=== PATIENT | female | born 1935 | race Caucasian/White ===

== ENCOUNTER 2016-11-18 17:05 | Inpatient (IN) | payer MEDICARE, BC ==
[~2016-11-18] VITALS: Ht 121.9 cm; Wt 55.4 kg
[2016-11-18 18:00] VITALS: BP 147/68; PULSE 81; RESP 16
[2016-11-18] MEDS ORDERED: NACL 0.9% 3 ML SYG IV SCH ×2 (19:00)
[2016-11-18] MEDS ORDERED: ONDANSETRON 4 MG INJ IV PRN (19:00)
[2016-11-18] MEDS ORDERED: NACL 3% FOR INHALATION 15 ML NEBU NEB ONE (19:30)
[2016-11-18] MEDS ORDERED: AZITHROMYCIN 500MG/NS (PMX) 250 ML IVPB ONE (20:00)
--- NOTE | 2016-11-18 20:15 | HP ---
DATE OF ADMISSION: 11/18/2016 REASON FOR ADMISSION: Increasing cough with shortness of breath for 3 weeks. HISTORY OF PRESENT ILLNESS: This 81-year-old female came to see me in my office today being transfe rred from [facility] because of increasing cough over the past 3 weeks. The patient was accompanied by her daughter. She was well until about 10/12/2016, when she fell at home and sh e fractured left lateral 8th and 9th ribs. She has had pain there. She was admitted to [facility] and during that admission was also treated for urinary tract infection with Levaquin. The patient also had an episode of overdosing on Dilantin which is a treatment for a seizure disorder th at she has. The patient at this time has a productive congested cough. She denies any fever or chi lls, but she says that the cough has been getting progressively worse and she has been getting short of breath. She also has been having some left lateral rib cage pain where she fell and injured her self back a month ago. PAST MEDICAL HISTORY: Seizure disorder, fibromyalgia, rheumatoid arthritis, thrombocytopenia, urina ry tract infection, psoriasis, gastroesophageal reflux disease, osteoporosis, hyperlipidemia, breast cancer, incomplete right bundle-branch block pattern, kidney stones, herniated lumbar disk, Graves disease with exophthalmia, cervical spine disease, gastroesophageal reflux disease. ALLERGIES: SHE IS ALLERGIC TO MULTIPLE MEDICATIONS INCLUDIN. SULFA. 2. ERYTHROMYCIN. 3. KEFLEX. PAST SURGICAL HISTORY: Hysterectomy, breast biopsy, colonoscopy, periodontal surgery, left femoral herniorrhaphy. FAMILY HISTORY: Both parents are . Father of colon cancer. Mother of Alzheimer disea se. Sibling of coronary artery disease. SOCIAL HISTORY: The patient does not smoke, does not drink alcohol. REVIEW OF SYSTEMS: CONSTITUTIONAL: She has been losing weight recently and has lost about 20 pounds. She has been inc reasingly fatigued. OPHTHALMOLOGIC: Negative. EARS, NOSE AND THROAT: Negative. CARDIORESPIRATORY: See above. She denies any substernal chest pain. GASTROINTESTINAL: She has had nausea, no vomiting, decreased appetite. NEUROLOGIC: She does have a history of seizure disorder. UROLOGIC: History of recurrent urinary tract infection. PHYSICAL EXAMINATION: GENERAL: At this time reveals an ill-appearing, frail female in no apparent distress. VITAL SIGNS: Temperature 99.4, blood pressure 120/80, heart rate 72. HEENT: Head normocephalic. Eyes: Extraocular muscles intact. NOSE AND MOUTH: Normal. NECK: Supple. No neck vein distention. LUNGS: There were rales and wheezes at the left base up to the mid lung field. Right lung was omer r. HEART: Regular rhythm. No murmurs, gallops, or rubs. ABDOMEN: Soft, nontender. No masses or megaly. EXTREMITIES: There is trace lower extremity edema. SKIN: The patient does have a stage II decubitus ulcer on her sacral area. IMPRESSION: This patient presents now with pneumonia. She has been living in a care home and th erefore is at risk of hospital-acquired type of infections. I will start her on a broad-spectrum an tibiotic. She will have a chest x-ray done as soon as possible. She has had falls at home and did fracture her 8th and 9th left ribs recently. She also has a history of a seizure disorder and has b een overdosed on Dilantin which caused her to become dizzy and ataxic. PLAN: 1. Resume some routine medications. 2. Check stat CBC, CMP, protime, PTT, sputum culture, urinalysis. 3. EKG, chest x-ray. 4. Broad-spectrum antibiotics. 5. Bed rest. Start physical therapy in the morning. 6. Wound care nurses to evaluate decubitus ulcer on the buttocks. Dictated By: RAQUEL ESPINOZA MD, ND/JAZZY Conf#: [id number] DID#: [id number]
[2016-11-18 20:17] LABS: INR 1.07; PROTIME 13.9 Sec (12.2-14.2); PT RATIO 1.1
[2016-11-18 20:19] LABS: ALBUMIN 3.6 g/dl (3.3-4.9)
[2016-11-18 20:20] LABS: POTASSIUM 3.8 mmol/L (3.5-5.1)
[2016-11-18 20:22] LABS: ALBUMIN/GLOBULIN RATIO 1.24; BILIRUBIN,INDIRECT 0.2 mg/dl (0-1.1); BILIRUBIN,TOTAL 0.2 mg/dl (0.2-1.3); CREATININE 0.71 mg/dl (0.44-1.00); PHOSPHORUS 2.8 mg/dl (2.5-4.9); TOTAL PROTEIN 6.5 g/dl (6.1-8.1)
[2016-11-18 20:23] LABS: CALCIUM 9.1 mg/dl (8.4-10.2); MAGNESIUM 1.9 mg/dl (1.7-2.5)
[2016-11-18 20:24] VITALS: BP 131/61; RESP 16
[2016-11-18 20:41] LABS: IRON 27 ug/dl (35-150)
[2016-11-18] MEDS: PHENYTOIN 100 MG CAP PO SCH (20:44)
[2016-11-18 20:50] LABS: TOTAL IRON BINDING CAPACITY 179 ug/dl (241-421)
[2016-11-18] MEDS: ALBUTEROL/IPRATROPIUM (NEB) 3 ML AMP HHN SCH (21:00)
--- NOTE | 2016-11-18 21:05 | RADRPT ---
PROCEDURE: XR Chest. CLINICAL INDICATION: Cough. TECHNIQUE: Portable AP upright view of the chest was obtained. COMPARISON: 07/05/2008 FINDINGS: The cardiomediastinal silhouette is within normal limits. The lungs are now clear. There is no gita dence for pleural effusion, pneumothorax or pulmonary vascular congestion. Demineralization with ol d left posterior seventh and eighth rib fractures. There is no evidence of acute osseous abnormalit y. Thoracic spondylosis and mild scoliosis of the upper lumbar spine to the left is noted. RPTAT:HJJR IMPRESSION: No evidence for acute intrathoracic pathology. Physician Nahed Date Time Electronically viewed and signed by Physician Nahed on 11/18/2016 21:05 /
[2016-11-18] MEDS: DEXTROSE 5%-0.45% NACL 1,000 ML IV SCH (21:22)
[2016-11-18] MEDS: ACETAMINOPHEN 325 MG TAB PO PRN (21:49)
[2016-11-18 21:51] LABS: THYROID STIMULATING HORMONE 1.76 MIU/L (0.465-4.680)
[2016-11-18] MEDS ORDERED: PIPER-TAZO 3.375 GM IV (PMX) 100 ML IVPB SCH (22:00)
[2016-11-18] MEDS: MEROPENEM 500 MG/100 ML (PMX) 100 ML IVPB SCH (23:48)
[2016-11-19] MEDS: ALBUTEROL/IPRATROPIUM (NEB) 3 ML AMP HHN SCH ×6 (01:00→21:50)
[2016-11-19 01:10] LABS: ADD UMIC YES; URINE BILIRUBIN (Dip) NEGATIVE (NEGATIVE); URINE BLOOD (Dip) NEGATIVE (NEGATIVE); URINE COLOR LT. YELLOW (YELLOW); URINE GLUCOSE (Dip) NEGATIVE (NEGATIVE); URINE KETONES (Dip) NEGATIVE (NEGATIVE); URINE LEUKOCYTE ESTERASE (Dip) 1+ (NEGATIVE); URINE NITRITE (Dip) NEGATIVE (NEGATIVE); URINE TOTAL PROTEIN (Dip) NEGATIVE (NEGATIVE); URINE UROBILINOGEN (Dip) 0.2 E.U./dL (0.1-1.0)
[2016-11-19 01:30] LABS: SQUAMOUS EPITHELIAL CELL,UR RARE; URINE RBCS NONE SEEN /HPF (0)
[2016-11-19] MEDS ORDERED: CALC600T5 PO (03:36)
[2016-11-19] MEDS ORDERED: RABE20TA5 PO (03:36)
[2016-11-19] MEDS ORDERED: LIDO700A6 TP (03:36)
[2016-11-19] MEDS ORDERED: ASC500 PO (03:36)
[2016-11-19] MEDS ORDERED: GUAI-111 PO (03:36)
[2016-11-19] MEDS ORDERED: CETI5SOL PO (03:36)
[2016-11-19] MEDS ORDERED: DONE10TA33 PO (03:36)
[2016-11-19] MEDS ORDERED: CHOL100062 PO (03:36)
[2016-11-19] MEDS ORDERED: IBUP400T22 PO (03:36)
[2016-11-19] MEDS: PANTOPRAZOLE (EC) 40 MG TAB PO SCH (05:48)
[2016-11-19 07:05] VITALS: BP 116/61; RESP 18
[2016-11-19] MEDS: DEXTROSE 5%-0.45% NACL 1,000 ML IV SCH ×2 (07:27→17:42)
--- NOTE | 2016-11-19 08:59 | CONS ---
Date/Time of Note Date/Time of Note DATE: 11/19/16 TIME: 08:55 Assessment/Plan Assessment/Plan Chief Complaint/Hosp Course 1. acute bronchitis , continue antibiotics , Iv fluids and breathing treatments . 2. nausea , improved 3. debility 4. h/o seizure disorder 5. anorexia Problems: Consultation Date/Type/Reason Admit Date/Time Nov 18, 2016 at 17:19 Initial Consult Date 24 HR Interval Summary Free Text/Dictation She has a cough that is productive of thick mucous . Exam/Review of Systems Vital Signs Vitals Vital Signs Date Time Temp Pulse Resp B/P Pulse Ox O2 Delivery O2 Flow Rate FiO2 11/19/16 08:29 2.0 11/19/16 01:54 73 20 93 Nasal Cannula 11/18/16 20:24 98.5 131/61 Intake and Output 11/18/16 11/18/16 11/19/16 15:00 23:00 07:00 Intake Total 1000 ml Balance 1000 ml Exam Constitutional: alert, frail, oriented Psych: no complaints Respiratory: congested cough Cardiovascular: regular rate and rhythm Gastrointestinal: soft Musculoskeletal: nl extremities to inspection Results Result Diagram: 11/18/161954 Results 24 hrs Laboratory Tests Test 11/18/16 19:55 11/18/16 22:06 Prothrombin Time 13.9 Prothrombin Time Ratio 1.1 INR International Normalized Ratio 1.07 Activated Partial Thromboplast Time 32.0 Sodium Level 139 Potassium Level 3.8 Chloride Level 100 Carbon Dioxide Level 28 Anion Gap 15 Blood Urea Nitrogen 12 Creatinine 0.71 Glucose Level 115 Calcium Level 9.1 Phosphorus Level 2.8 Magnesium Level 1.9 Iron Level 27 L Total Iron Binding Capacity 179 L Percent Iron Saturation 15 L Ferritin 102.0 Total Bilirubin 0.2 Direct Bilirubin 0.00 Indirect Bilirubin 0.2 Aspartate Amino Transf (AST/SGOT) 17 Alanine Aminotransferase (ALT/SGPT) 23 Alkaline Phosphatase 159 H Total Protein 6.5 Albumin 3.6 Globulin 2.90 Albumin/Globulin Ratio 1.24 Thyroid Stimulating Hormone (TSH) 1.760 Urine Color LT. YELLOW Urine Clarity CLEAR Urine pH 6.5 Urine Specific Gamaliel <=1.005 L Urine Ketones NEGATIVE Urine Nitrite NEGATIVE Urine Bilirubin NEGATIVE Urine Urobilinogen 0.2 E.U./dL Urine Leukocyte Esterase 1+ H Urine Microscopic RBC NONE SEEN Urine Microscopic WBC 5-10 Urine Squamous Epithelial Cells RARE Urine Hemoglobin NEGATIVE Urine Glucose NEGATIVE Urine Total Protein NEGATIVE Medications Medications Current Medications Dextrose/Sodium Chloride (D5-1/2ns) 1,000 ml @ 80 mls/hr [id number] IV Last administered on 11/18/16 21:22; Admin Dose 80 MLS/HR; Start 11/18/16 at 18:57 Ondansetron HCl (Zofran Inj) 4 mg Q6H PRN IV NAUSEA AND/OR VOMITING Last administered on 11/18/16 21:49; Admin Dose 4 MG; Start 11/18/16 at 19:00 Acetaminophen (Tylenol Tab) 650 mg Q6H PRN PO PAIN LEVEL 1-3 OR FEVER Last administered on 11/18/16 21:49; Admin Dose 650 MG; Start 11/18/16 at 19:00 Pantoprazole (Protonix Tab) 40 mg DAILY@06 PO Last administered on 11/19/16 05 :48; Admin Dose 40 MG; Start 11/19/16 at 06:00 Donepezil HCl (Aricept) 10 mg DAILY PO ; Start 11/19/16 at 09:00 Phenytoin (Dilantin) 300 mg HS PO Last administered on 11/18/16 20:44; Admin Dose 300 MG; Start 11/18/16 at 21:00 Multivitamins/ Minerals (Theragran-M) 1 tab DAILY PO ; Start 11/19/16 at 09:00 Loratadine (Claritin) 10 mg DAILY PO ; Start 11/19/16 at 09:00 Azithromycin 250 mg 250 mg Q24H PO ; Start 11/19/16 at 21:00 Meropenem (Merrem 500 Mg/ 100 ml (Pmx)) 100 ml @ 200 mls/hr Q12 IVPB Last administered on 11/18/16 23:48; Admin Dose 200 MLS/HR; Start 11/18/16 at 21:00 RAQUEL ESPINOZA MD Nov 19, 2016 08:59
[2016-11-19] MEDS: MEROPENEM 500 MG/100 ML (PMX) 100 ML IVPB SCH ×2 (09:00→20:24)
[2016-11-19] MEDS: MULTIVITAMINS/MINERALS TAB PO SCH (09:10)
[2016-11-19] MEDS: DONEPEZIL 10 MG TAB PO SCH (09:15)
[2016-11-19] MEDS: LORATADINE 10 MG TAB PO SCH (09:18)
[2016-11-19 13:26] LABS: ADD SCAN DIFF NO
[2016-11-19 13:28] LABS: ABNORMAL IP MESSAGE 1; EOSINOPHILS % 0.2 % (0.0-7.0); HEMATOCRIT 38.2 % (37.0-47.0); HEMOGLOBIN 11.9 g/dl (12.0-16.0); LYMPHOCYTES # 1.2 10^3/ul (0.8-2.9); LYMPHOCYTES % 25.9 % (15.0-51.0); MEAN CORPUSCULAR HEMOGLOBIN 28.7 pg (29.0-33.0); MEAN CORPUSCULAR HGB CONC 31.2 g/dl (32.0-37.0); MEAN CORPUSCULAR VOLUME 92.3 fl (82.0-101.0); MEAN PLATELET VOLUME 11.5 fl (7.4-10.4); MONOCYTE # 0.6 10^3/ul (0.3-0.9); MONOCYTES % 12.1 % (0.0-11.0); NEUTROPHIL # 2.8 10^3/ul (1.6-7.5); NEUTROPHILS % 59.3 % (39.0-77.0); RED BLOOD COUNT 4.14 10^6/ul (4.20-5.40); RED CELL DISTRIBUTION WIDTH 14.8 % (11.5-14.5); WHITE BLOOD COUNT 4.8 10^3/ul (4.8-10.8)
[2016-11-19 16:56] LABS: PLATELET COUNT 101 10^3/UL (140-415)
[2016-11-19] MEDS: AZITHROMYCIN 250 MG TAB PO SCH (20:24)
[2016-11-19] MEDS: PHENYTOIN 100 MG CAP PO SCH (20:25)
[2016-11-19 21:21] VITALS: BP 121/63; RESP 18
[2016-11-20] MEDS: ALBUTEROL/IPRATROPIUM (NEB) 3 ML AMP HHN SCH ×6 (01:00→20:47)
[2016-11-20] MEDS: PANTOPRAZOLE (EC) 40 MG TAB PO SCH (06:35)
[2016-11-20 08:17] VITALS: BP 124/56; RESP 14
--- NOTE | 2016-11-20 08:49 | PN ---
Date/Time of Note Date/Time of Note DATE: 11/20/16 TIME: 08:45 Assessment/Plan VTE Prophylaxis VTE Prophylaxis Intervention: other Lines/Catheters IV Catheter Type (from [facility]): Peripheral IV Urinary Cath still in place: No Assessment/Plan Assessment/Plan 1. Exam suggests bronchitis/pneumonia, cxr was unremarkable-CT chest ordered, ID and Pul to see, NIVVS ordered. 2. Known dementia, stable 3. Seizure disorder, Dilantin level ordered Subjective 24 Hr Interval Summary ENT: other (head and nasal congestion) Respiratory: cough (is mild and feels discomfort left side of chest, ? pleuritic) Cardiovascular: No chest pain Gastrointestinal: no complaints Neurologic: other (legs ache some) Exam/Review of Systems Vital Signs Vitals Vital Signs Date Time Temp Pulse Resp B/P Pulse Ox O2 Delivery O2 Flow Rate FiO2 11/20/16 08:19 2.0 11/20/16 08:17 98.1 73 14 124/56 98 11/19/16 21:52 Nasal Cannula Intake and Output 11/19/16 11/19/16 11/20/16 15:00 23:00 07:00 Intake Total 1380 ml 1220 ml Balance 1380 ml 1220 ml Exam Neck: No jvd Respiratory: other (rales and rhonchi bilat, r>l) Cardiovascular: regular rate and rhythm Gastrointestinal: soft Extremities: No edema (and no calf tend) Results Result Diagram: 11/19/16 1311 11/18/161954 Results 24 hrs Laboratory Tests Test 11/19/16 13:11 White Blood Count 4.8 Red Blood Count 4.14 L Hemoglobin 11.9 L Hematocrit 38.2 Mean Corpuscular Volume 92.3 Mean Corpuscular Hemoglobin 28.7 L Mean Corpuscular Hemoglobin Concent 31.2 L Red Cell Distribution Width 14.8 H Platelet Count 101 L Mean Platelet Volume 11.5 H Neutrophils % 59.3 Lymphocytes % 25.9 Monocytes % 12.1 H Eosinophils % 0.2 Basophils % 0.0 Nucleated Red Blood Cells % 0.0 Neutrophils # 2.8 Lymphocytes # 1.2 Monocytes # 0.6 Eosinophils # 0.0 Basophils # 0.0 Nucleated Red Blood Cells # 0.0 Medications Medications Current Medications Dextrose/Sodium Chloride (D5-1/2ns) 1,000 ml @ 80 mls/hr [id number] IV Last administered on 11/19/16 17:42; Admin Dose 80 MLS/HR; Start 11/18/16 at 18:57 Ondansetron HCl (Zofran Inj) 4 mg Q6H PRN IV NAUSEA AND/OR VOMITING Last administered on 11/18/16 21:49; Admin Dose 4 MG; Start 11/18/16 at 19:00 Acetaminophen (Tylenol Tab) 650 mg Q6H PRN PO PAIN LEVEL 1-3 OR FEVER Last administered on 11/18/16 21:49; Admin Dose 650 MG; Start 11/18/16 at 19:00 Pantoprazole (Protonix Tab) 40 mg DAILY@06 PO Last administered on 11/20/16 06 :35; Admin Dose 40 MG; Start 11/19/16 at 06:00 Donepezil HCl (Aricept) 10 mg DAILY PO Last administered on 11/19/16 09:15; Admin Dose 10 MG; Start 11/19/16 at 09:00 Phenytoin (Dilantin) 300 mg HS PO Last administered on 11/19/16 20:25; Admin Dose 300 MG; Start 11/18/16 at 21:00 Multivitamins/ Minerals (Theragran-M) 1 tab DAILY PO Last administered on 09:10; Admin Dose 1 TAB; Start 11/19/16 at 09:00 Loratadine (Claritin) 10 mg DAILY PO Last administered on 11/19/16 09:18; Admin Dose 10 MG; Start 11/19/16 at 09:00 Azithromycin 250 mg 250 mg Q24H PO Last administered on 11/19/16 20:24; Admin Dose 250 MG; Start 11/19/16 at 21:00 Meropenem (Merrem 500 Mg/ 100 ml (Pmx)) 100 ml @ 200 mls/hr Q12 IVPB Last administered on 11/19/16 20:24; Admin Dose 200 MLS/HR; Start 11/18/16 at 21:00 ALMITA BENNETT MD Nov 20, 2016 08:49
[2016-11-20] MEDS: MULTIVITAMINS/MINERALS TAB PO SCH (09:00)
[2016-11-20] MEDS: DEXTROSE 5%-0.45% NACL 1,000 ML IV SCH ×2 (09:09→10:38)
[2016-11-20] MEDS: DONEPEZIL 10 MG TAB PO SCH (09:09)
[2016-11-20] MEDS: ACETAMINOPHEN 325 MG TAB PO PRN ×2 (09:10→20:58)
[2016-11-20] MEDS: LORATADINE 10 MG TAB PO SCH (09:10)
--- NOTE | 2016-11-20 09:23 | RADRPT ---
PROCEDURE: Ultrasound of the bilateral lower extremity venous system. CLINICAL INDICATION: Bilateral leg pain and swelling, deep venous thrombosis TECHNIQUE: Rosas scale with and without compression, color doppler, spectral doppler of the venous system of the bilateral lower extremities was performed. Venous augmentation maneuvers were utilized . COMPARISON: No prior studies are available for comparison. FINDINGS: RIGHT: Common femoral vein: Patent. Femoral vein: Patent. Popliteal vein: Patent. Calf veins: Patent. No soft tissue abnormalities are identified. LEFT: Common femoral vein: Patent. Femoral vein: Patent. Popliteal vein: Patent. Calf veins: Patent. No soft tissue abnormalities are identified. IMPRESSION: No evidence of a deep vein thrombosis within the bilateral lower extremities. RPTAT: AADD .Mckay Batista MD, MD Date Time Electronically viewed and signed by .Mckay Batista MD, on 11/20/2016 09:23 .B/
[2016-11-20] MEDS: MEROPENEM 500 MG/100 ML (PMX) 100 ML IVPB SCH (10:56)
--- NOTE | 2016-11-20 10:56 | CONS ---
Date/Time of Note Date/Time of Note DATE: 11/20/16 TIME: 10:41 Assessment/Plan Assessment/Plan Chief Complaint/Hosp Course 1) 3 weeks of chest and nasal congestion, s/p fall and L lower rib fx increase in monocytes with normal WBC and slightly low platelets is more suggestive of viral etiology CXR was neg, chest CT is pending on azithro/merrem at present but if chest CT is unimpressive will d/c merrem sputum cx and nasal cx sent check procalcitonin pt is refusing breathing treatments will try xopenox inhaler 2) fibromyalgia 3) seizure disorder 4) hx of kidney stone and recent UTI u/a is not impressive 5) hx of breast CA Problems: Consultation Date/Type/Reason Admit Date/Time Nov 18, 2016 at 17:19 Date of Consultation: Nov 20, 2016 Type of Consultation: ID Hx of Present Illness pt states she has been having chest and nasal congestion for many weeks it is productive but she is not sure what color it is these symptoms started after she fell and had been admitted to [facility] with rib fx she denies F, C, NS No N, V, D No CP, abd pain she has fibromyalgia and so she has muscle pains but only when touched no dysuria, rashes no sick contacts ENT: other (head and nasal congestion) Respiratory: cough (is mild and feels discomfort left side of chest, ? pleuritic) Cardiovascular: No chest pain Gastrointestinal: no complaints Neurologic: other (legs ache some) Psychological: no complaints Past Medical History fibromyalgia, RA, GERD, macular degeneration, kidney stones, graves ds, seizure disorder, breast CA Past Surgical History hysterecomjty, L fem hernia repair Social History Smoking Status: Never smoker Exam/Review of Systems Vital Signs Vitals Vital Signs Date Time Temp Pulse Resp B/P Pulse Ox O2 Delivery O2 Flow Rate FiO2 11/20/16 08:19 2.0 11/20/16 08:17 98.1 73 14 124/56 98 11/19/16 21:52 Nasal Cannula Intake and Output 11/19/16 11/19/16 11/20/16 15:00 23:00 07:00 Intake Total 1380 ml 1220 ml Balance 1380 ml 1220 ml Exam Constitutional: alert, other (repeats questions but answers my questions eventually, poor historian) Head: normocephalic Eyes: nl sclera ENMT: mucosa pink and moist Respiratory: clear to auscultation Cardiovascular: regular rate and rhythm Gastrointestinal: non-tender, soft Extremities: other (slight swelling L>R, diffuse tenderness when touched) Neurological: other (non focal) Results Result Diagram: 11/19/16 1311 11/18/161954 Results 24 hrs Laboratory Tests Test 11/19/16 13:11 White Blood Count 4.8 Red Blood Count 4.14 L Hemoglobin 11.9 L Hematocrit 38.2 Mean Corpuscular Volume 92.3 Mean Corpuscular Hemoglobin 28.7 L Mean Corpuscular Hemoglobin Concent 31.2 L Red Cell Distribution Width 14.8 H Platelet Count 101 L Mean Platelet Volume 11.5 H Neutrophils % 59.3 Lymphocytes % 25.9 Monocytes % 12.1 H Eosinophils % 0.2 Basophils % 0.0 Nucleated Red Blood Cells % 0.0 Neutrophils # 2.8 Lymphocytes # 1.2 Monocytes # 0.6 Eosinophils # 0.0 Basophils # 0.0 Nucleated Red Blood Cells # 0.0 Medications Medications Current Medications Dextrose/Sodium Chloride (D5-1/2ns) 1,000 ml @ 80 mls/hr [id number] IV Last administered on 11/20/16 09:09; Admin Dose 80 MLS/HR; Start 11/18/16 at 18:57 Ondansetron HCl (Zofran Inj) 4 mg Q6H PRN IV NAUSEA AND/OR VOMITING Last administered on 11/18/16 21:49; Admin Dose 4 MG; Start 11/18/16 at 19:00 Acetaminophen (Tylenol Tab) 650 mg Q6H PRN PO PAIN LEVEL 1-3 OR FEVER Last administered on 11/20/16 09:10; Admin Dose 650 MG; Start 11/18/16 at 19:00 Pantoprazole (Protonix Tab) 40 mg DAILY@06 PO Last administered on 11/20/16 06 :35; Admin Dose 40 MG; Start 11/19/16 at 06:00 Donepezil HCl (Aricept) 10 mg DAILY PO Last administered on 11/20/16 09:09; Admin Dose 10 MG; Start 11/19/16 at 09:00 Phenytoin (Dilantin) 300 mg HS PO Last administered on 11/19/16 20:25; Admin Dose 300 MG; Start 11/18/16 at 21:00 Multivitamins/ Minerals (Theragran-M) 1 tab DAILY PO Last administered on 09:10; Admin Dose 1 TAB; Start 11/19/16 at 09:00 Loratadine (Claritin) 10 mg DAILY PO Last administered on 11/20/16 09:10; Admin Dose 10 MG; Start 11/19/16 at 09:00 Azithromycin 250 mg 250 mg Q24H PO Last administered on 11/19/16 20:24; Admin Dose 250 MG; Start 11/19/16 at 21:00 Meropenem (Merrem 500 Mg/ 100 ml (Pmx)) 100 ml @ 200 mls/hr Q12 IVPB Last administered on 11/19/16 20:24; Admin Dose 200 MLS/HR; Start 11/18/16 at 21:00 Enoxaparin Sodium 40 mg 40 mg DAILY SC ; Start 11/20/16 at 09:00 Ferric Sodium Gluconate Complex/ Sodium Chloride (Ferrlecit/NS) 110 ml @ 110 mls/hr Q24H IVPB ; Start 11/20/16 at 11:00; Stop 11/24/16 at 11:59 Guaifenesin/ Dextromethorphan (Mucinex Dm) 1 tab BID PO ; Start 11/20/16 at 09: 00 BLAS CARDOSO MD Nov 20, 2016 10:53
[2016-11-20] MEDS: GUAIFENESIN/DM (SR) TAB PO SCH ×2 (10:57→20:59)
[2016-11-20] MEDS: ENOXAPARIN 40 MG/0.4 ML SYG SC SCH (11:12)
--- NOTE | 2016-11-20 12:19 | CONS ---
Date/Time of Note Date/Time of Note DATE: 11/20/16 TIME: 12:13 Assessment/Plan Assessment/Plan Additional Assessment/Plan Chest x-ray was reviewed from of this month which is totally clear. Urinalysis negative for infection. Lower extremity ultrasound is negative for any DVT. Assessment recommendations; 1. Patient admitted for chronic cough likely from postnasal drip and acute / chronic sinusitis. 2. Recent fall resulting in left eighth and ninth rib fractures. 3. Stable seizure disorder. 4. Fibromyalgia. 5. History of breast cancer. 6. History of psoriasis. Discontinue meropenem. Start Zithromax 500 mg IV daily, and Claritin-D every 12 hours. Continue DuoNeb every 6 hours as needed. At this point patient does not need to have a CT scan of chest done. Consultation Date/Type/Reason Admit Date/Time Nov 18, 2016 at 17:19 Date of Consultation: Nov 20, 2016 Type of Consultation: Pulmonary Reason for Consultation Pulmonary consultations requested for evaluation of chronic cough. History presenting any; patient is a pleasant 81-year-old white lady who came to the hospital 2 days ago with complaints of cough going on for the last several weeks associated with sputum production. Patient also complains of significant sinus drainage and nasal congestion. According to her the cough is on a daily basis and there is no particular time at which it is worse. He denies any wheezing, complains of occasional shortness of breath. Denies any hemoptysis, fever chills. Denies any chest pain. Patient was recently admitted to [facility] for a fall resulting in left rib fractures. Past medical history; 1. History of recent UTI. 2. Seizure disorder. 3. Fibromyalgia. 4. Acid reflux. 5. Psoriasis. 6. Hyperlipidemia. 7. History of breast cancer. 8. Graves' disease. 9. Status post hysterectomy and left inguinal herniorrhaphy. Medications; were reviewed. Allergies; are to sulfa drugs. Social history; patient has a remote history of scant smoking. No history of alcohol or drug abuse. Family history; noncontributory. Next Occupational history; patient used to be a teacher. Review of systems; denies any recent seizures, any visual changes. Any hearing loss. Does complain of sinus congestion and postnasal drip. Denies any difficulty swallowing. Denies any chest pain. Any wheezing. Shortness of breath has improved. Complains of cough and sputum production. Denies any hemoptysis. Denies any abdominal pain, nausea vomiting. Denies any melena hematochezia. Denies any urinary symptoms. Denies any orthopnea. Any edema. General exam; elderly lady, awake alert currently in no distress. ENT: other (head and nasal congestion) Respiratory: cough (is mild and feels discomfort left side of chest, ? pleuritic) Cardiovascular: No chest pain Gastrointestinal: no complaints Neurologic: other (legs ache some) Psychological: no complaints Social History Smoking Status: Never smoker Exam/Review of Systems Vital Signs Vitals Vital Signs Date Time Temp Pulse Resp B/P Pulse Ox O2 Delivery O2 Flow Rate FiO2 11/20/16 08:19 2.0 11/20/16 08:17 98.1 73 14 124/56 98 11/19/16 21:52 Nasal Cannula Intake and Output 11/19/16 11/19/16 11/20/16 15:00 23:00 07:00 Intake Total 1380 ml 1220 ml Balance 1380 ml 1220 ml Exam HEENT examination; supple neck, no JVD. No lymphadenopathy. Midline trachea. Pharynx is clear. Patient has fair dentition. Has bilateral intraocular lens implants. There is mild bilateral maxillary sinus tenderness. Chest examination; clear to auscultation bilaterally. S1-S2 audible, no murmurs. Regular rhythm. Abdomen examination; soft, nontender, nondistended. No organomegaly. Bowel sounds audible. Extremity examination; no peripheral edema. Pulses 2+ bilaterally. No clubbing. CONFERENCE ASSISTANT examination; cranial nerves are grossly intact, no motor deficit. Results Result Diagram: 11/19/16 1311 11/18/161954 Results 24 hrs Laboratory Tests Test 11/19/16 13:11 White Blood Count 4.8 Red Blood Count 4.14 L Hemoglobin 11.9 L Hematocrit 38.2 Mean Corpuscular Volume 92.3 Mean Corpuscular Hemoglobin 28.7 L Mean Corpuscular Hemoglobin Concent 31.2 L Red Cell Distribution Width 14.8 H Platelet Count 101 L Mean Platelet Volume 11.5 H Neutrophils % 59.3 Lymphocytes % 25.9 Monocytes % 12.1 H Eosinophils % 0.2 Basophils % 0.0 Nucleated Red Blood Cells % 0.0 Neutrophils # 2.8 Lymphocytes # 1.2 Monocytes # 0.6 Eosinophils # 0.0 Basophils # 0.0 Nucleated Red Blood Cells # 0.0 Medications Medications Current Medications Dextrose/Sodium Chloride (D5-1/2ns) 1,000 ml @ 80 mls/hr [id number] IV Last administered on 11/20/16 09:09; Admin Dose 80 MLS/HR; Start 11/18/16 at 18:57 Ondansetron HCl (Zofran Inj) 4 mg Q6H PRN IV NAUSEA AND/OR VOMITING Last administered on 11/18/16 21:49; Admin Dose 4 MG; Start 11/18/16 at 19:00 Acetaminophen (Tylenol Tab) 650 mg Q6H PRN PO PAIN LEVEL 1-3 OR FEVER Last administered on 11/20/16 09:10; Admin Dose 650 MG; Start 11/18/16 at 19:00 Pantoprazole (Protonix Tab) 40 mg DAILY@06 PO Last administered on 11/20/16 06 :35; Admin Dose 40 MG; Start 11/19/16 at 06:00 Donepezil HCl (Aricept) 10 mg DAILY PO Last administered on 11/20/16 09:09; Admin Dose 10 MG; Start 11/19/16 at 09:00 Phenytoin (Dilantin) 300 mg HS PO Last administered on 11/19/16 20:25; Admin Dose 300 MG; Start 11/18/16 at 21:00 Multivitamins/ Minerals (Theragran-M) 1 tab DAILY PO Last administered on 09:00; Admin Dose 1 TAB; Start 11/19/16 at 09:00 Loratadine (Claritin) 10 mg DAILY PO Last administered on 11/20/16 09:10; Admin Dose 10 MG; Start 11/19/16 at 09:00 Azithromycin 250 mg 250 mg Q24H PO Last administered on 11/19/16 20:24; Admin Dose 250 MG; Start 11/19/16 at 21:00 Meropenem (Merrem 500 Mg/ 100 ml (Pmx)) 100 ml @ 200 mls/hr Q12 IVPB Last administered on 11/20/16 10:56; Admin Dose 200 MLS/HR; Start 11/18/16 at 21:00 Enoxaparin Sodium 40 mg 40 mg DAILY SC Last administered on 11/20/16 11:12; Admin Dose 40 MG; Start 11/20/16 at 09:00 Ferric Sodium Gluconate Complex/ Sodium Chloride (Ferrlecit/NS) 110 ml @ 110 mls/hr Q24H IVPB ; Start 11/20/16 at 11:00; Stop 11/24/16 at 11:59 Guaifenesin/ Dextromethorphan (Mucinex Dm) 1 tab BID PO Last administered on 10:57; Admin Dose 1 TAB; Start 11/20/16 at 09:00 TAMIKO CLEMENTS Nov 20, 2016 12:19
[2016-11-20 12:23] LABS: ADD SCAN DIFF NO
[2016-11-20 12:28] LABS: HEMATOCRIT 38.5 % (37.0-47.0); MEAN CORPUSCULAR HEMOGLOBIN 28.4 pg (29.0-33.0); MEAN CORPUSCULAR HGB CONC 31.2 g/dl (32.0-37.0); MEAN CORPUSCULAR VOLUME 91.2 fl (82.0-101.0); MEAN PLATELET VOLUME 10.3 fl (7.4-10.4); PLATELET COUNT 107 10^3/UL (140-415); RED BLOOD COUNT 4.22 10^6/ul (4.20-5.40); RED CELL DISTRIBUTION WIDTH 15.1 % (11.5-14.5); WHITE BLOOD COUNT 5.5 10^3/ul (4.8-10.8)
[2016-11-20 12:43] LABS: POTASSIUM 3.8 mmol/L (3.5-5.1)
[2016-11-20 12:45] LABS: CREATININE 0.6 mg/dl (0.44-1.00)
[2016-11-20 12:46] LABS: CALCIUM 8.7 mg/dl (8.4-10.2); MAGNESIUM 1.8 mg/dl (1.7-2.5)
[2016-11-20] MEDS: AZITHROMYCIN 500MG/NS (PMX) 250 ML IVPB SCH (13:30)
[2016-11-20 14:06] LABS: PLATELET ESTIMATE PLT APPEAR ADEQUATE; PLATELETS CLUMPS FEW
[2016-11-20 14:09] LABS: MONOCYTE # 0.7 10^3/ul (0.3-0.9); NEUTROPHIL # 2.9 10^3/ul (1.6-7.5)
[2016-11-20] MEDS: SOD FERRIC GLUC COMPLX 125 MG in SOD CHLORIDE 0.9% 100 ML IVPB SCH (14:15)
[2016-11-20] MEDS: LORATADINE/PSEUDOEPHED (SR) TAB PO SCH ×2 (14:16→20:57)
[2016-11-20] MEDS: LEVALBUTEROL (HFA) 15 GM INHALER INH SCH (16:05)
--- NOTE | 2016-11-20 17:10 | RADRPT ---
Vent Rate: 64 bpm RR Interval: [address] Interval: 146 msec QRS Duration: 132 msec QT Interval: 402 msec QTC Interval: 414 msec P-R-T [place]: 37 - -35 - -12 degrees Normal sinus rhythm Left axis deviation Right bundle branch block Abnormal ECG Electronically Signed By: Tomer Lin [id number]
[2016-11-20 20:53] VITALS: BP 164/67; RESP 16
[2016-11-20] MEDS: AZITHROMYCIN 250 MG TAB PO SCH (20:59)
[2016-11-20] MEDS: PHENYTOIN 100 MG CAP PO SCH (20:59)
[2016-11-21] MEDS: LEVALBUTEROL (HFA) 15 GM INHALER INH SCH
[2016-11-21] MEDS: ALBUTEROL/IPRATROPIUM (NEB) 3 ML AMP HHN SCH ×6 (01:00→20:17)
[2016-11-21] MEDS: PANTOPRAZOLE (EC) 40 MG TAB PO SCH (05:11)
[2016-11-21] MEDS: ACETAMINOPHEN 325 MG TAB PO PRN ×2 (05:11→18:16)
[2016-11-21 05:50] LABS: ADD SCAN DIFF NO
[2016-11-21 06:00] LABS: ABNORMAL IP MESSAGE 1; HEMATOCRIT 40.8 % (37.0-47.0); HEMOGLOBIN 12.6 g/dl (12.0-16.0); MEAN CORPUSCULAR HEMOGLOBIN 28.4 pg (29.0-33.0); MEAN CORPUSCULAR HGB CONC 30.9 g/dl (32.0-37.0); MEAN CORPUSCULAR VOLUME 92.1 fl (82.0-101.0); MEAN PLATELET VOLUME 10.5 fl (7.4-10.4); RED BLOOD COUNT 4.43 10^6/ul (4.20-5.40); RED CELL DISTRIBUTION WIDTH 15.1 % (11.5-14.5); WHITE BLOOD COUNT 5.2 10^3/ul (4.8-10.8)
[2016-11-21 06:06] LABS: MAGNESIUM 1.8 mg/dl (1.7-2.5); PHOSPHORUS 3.4 mg/dl (2.5-4.9)
[2016-11-21 06:08] LABS: ALBUMIN 3.5 g/dl (3.3-4.9); ALBUMIN/GLOBULIN RATIO 1.25; CALCIUM 8.9 mg/dl (8.4-10.2); CREATININE 0.66 mg/dl (0.44-1.00); POTASSIUM 4.1 mmol/L (3.5-5.1); TOTAL PROTEIN 6.3 g/dl (6.1-8.1)
--- NOTE | 2016-11-21 07:22 | CONS ---
Date/Time of Note Date/Time of Note DATE: 11/21/16 TIME: 07:19 Assessment/Plan Assessment/Plan Chief Complaint/Hosp Course 1) 3 weeks of chest and nasal congestion, s/p fall and L lower rib fx increase in monocytes with normal WBC and slightly low platelets is more suggestive of viral etiology CXR was neg, chest CT is pending on azithro/merrem at present but if chest CT is unimpressive will d/c merrem sputum cx and nasal cx sent check procalcitonin pt is refusing breathing treatments will try xopenox inhaler 11/21 - clinically improved continue with azithro/merrem will re-order chest CT and now stat sputum cx was neg viral PCR of nares was sent off yesterday 2) fibromyalgia 3) seizure disorder 4) hx of kidney stone and recent UTI u/a is not impressive 11/21 - urine cx has only 10-20k mixed GPC which is not significant 5) hx of breast CA Problems: Consultation Date/Type/Reason Admit Date/Time Nov 20, 2016 at 14:21 Initial Consult Date 11/20/16 Type of Consultation: ID 24 HR Interval Summary Free Text/Dictation pt states breathing is ok still has coryza no N, V, D fibromyalgia pains when legs are touched CT chest was not done for unclear reasons Exam/Review of Systems Vital Signs Vitals Vital Signs Date Time Temp Pulse Resp B/P Pulse Ox O2 Delivery O2 Flow Rate FiO2 11/20/16 23:00 2.0 11/20/16 20:53 98.1 110 16 164/67 94 11/20/16 20:47 Nasal Cannula Intake and Output 11/20/16 11/20/16 11/21/16 15:00 23:00 07:00 Intake Total 200 ml 360 ml Balance 200 ml 360 ml Exam Head: normocephalic Eyes: nl sclera ENMT: mucosa pink and moist Respiratory: other (bibasilar crackles) Cardiovascular: regular rate and rhythm Gastrointestinal: non-tender, soft Results Result Diagram: 11/21/16 0525 11/21/16 0525 Results 24 hrs Laboratory Tests Test 11/20/16 12:15 11/21/16 05:25 White Blood Count 5.5 5.2 Red Blood Count 4.22 4.43 Hemoglobin 12.0 12.6 Hematocrit 38.5 40.8 Mean Corpuscular Volume 91.2 92.1 Mean Corpuscular Hemoglobin 28.4 L 28.4 L Mean Corpuscular Hemoglobin Concent 31.2 L 30.9 L Red Cell Distribution Width 15.1 H 15.1 H Platelet Count 107 L Pending Mean Platelet Volume 10.3 10.5 H Neutrophils % 52.0 55.6 Lymphocytes % 36.0 29.3 Monocytes % 12.0 H 12.4 H Neutrophils # 2.9 2.9 Lymphocytes # 2.0 1.5 Monocytes # 0.7 0.6 Platelet Estimate PLT APPEAR ADEQUATE Clumped Platelets FEW Sodium Level 138 136 Potassium Level 3.8 4.1 Chloride Level 102 103 Carbon Dioxide Level 28 28 Anion Gap 12 9 Blood Urea Nitrogen 10 10 Creatinine 0.60 0.66 Glucose Level 94 106 Calcium Level 8.7 8.9 Phosphorus Level 3.3 3.4 Magnesium Level 1.8 1.8 Eosinophils % 0.2 Basophils % 0.2 Nucleated Red Blood Cells % 0.0 Eosinophils # 0.0 Basophils # 0.0 Nucleated Red Blood Cells # 0.0 Total Bilirubin 0.0 L Direct Bilirubin 0.00 Indirect Bilirubin 0.0 Aspartate Amino Transf (AST/SGOT) 16 Alanine Aminotransferase (ALT/SGPT) 27 Alkaline Phosphatase 161 H Total Protein 6.3 Albumin 3.5 Globulin 2.80 Albumin/Globulin Ratio 1.25 Phenytoin (Dilantin) Level 7.9 L Medications Medications Current Medications Dextrose/Sodium Chloride (D5-1/2ns) 1,000 ml @ 80 mls/hr [id number] IV Last administered on 11/20/16 09:09; Admin Dose 80 MLS/HR; Start 11/18/16 at 18:57 Ondansetron HCl (Zofran Inj) 4 mg Q6H PRN IV NAUSEA AND/OR VOMITING Last administered on 11/18/16 21:49; Admin Dose 4 MG; Start 11/18/16 at 19:00 Acetaminophen (Tylenol Tab) 650 mg Q6H PRN PO PAIN LEVEL 1-3 OR FEVER Last administered on 11/21/16 05:11; Admin Dose 650 MG; Start 11/18/16 at 19:00 Pantoprazole (Protonix Tab) 40 mg DAILY@06 PO Last administered on 11/21/16 05 :11; Admin Dose 40 MG; Start 11/19/16 at 06:00 Donepezil HCl (Aricept) 10 mg DAILY PO Last administered on 11/20/16 09:09; Admin Dose 10 MG; Start 11/19/16 at 09:00 Phenytoin (Dilantin) 300 mg HS PO Last administered on 11/20/16 20:59; Admin Dose 300 MG; Start 11/18/16 at 21:00 Multivitamins/ Minerals (Theragran-M) 1 tab DAILY PO Last administered on 09:00; Admin Dose 1 TAB; Start 11/19/16 at 09:00 Loratadine (Claritin) 10 mg DAILY PO Last administered on 11/20/16 09:10; Admin Dose 10 MG; Start 11/19/16 at 09:00 Azithromycin (Zithromax) 250 mg Q24H PO Last administered on 11/20/16 20:59; Admin Dose 250 MG; Start 11/19/16 at 21:00 Enoxaparin Sodium 40 mg 40 mg DAILY SC Last administered on 11/20/16 11:12; Admin Dose 40 MG; Start 11/20/16 at 09:00 Ferric Sodium Gluconate Complex/ Sodium Chloride (Ferrlecit/NS) 110 ml @ 110 mls/hr Q24H IVPB Last administered on 11/20/16 14:15; Admin Dose 110 MLS/HR; Start 11/20/16 at 11:00; Stop 11/24/16 at 11:59 Guaifenesin/ Dextromethorphan 1 tab 1 tab BID PO Last administered on 20:59; Admin Dose 1 TAB; Start 11/20/16 at 09:00 Azithromycin (Zithromax 500mg/ NS (Pmx)) 250 ml @ 250 mls/hr Q24H IVPB Last administered on 11/20/16 13:30; Admin Dose 250 MLS/HR; Start 11/20/16 at 13:30 Loratadine/ Pseudoephedrine Sulfate (Claritin-D 12 Hr) 1 tab Q12 PO Last administered on 11/20/16 20:57; Admin Dose 1 TAB; Start 11/20/16 at 13:30 BLAS CARDOSO MD Nov 21, 2016 07:22
--- NOTE | 2016-11-21 08:25 | PN ---
Date/Time of Note Date/Time of Note DATE: 11/21/16 TIME: 08:22 Assessment/Plan VTE Prophylaxis VTE Prophylaxis Intervention: other Lines/Catheters IV Catheter Type (from Nrs): Peripheral IV Urinary Cath still in place: No Assessment/Plan Assessment/Plan 1. Bronchtitis vs pneumonia, ct scan is pending, with improved pul status today , abx per id 2. Cognitive impairment, stable. Subjective 24 Hr Interval Summary Respiratory: cough (is less and not productive) Cardiovascular: No chest pain Gastrointestinal: no complaints Genitourinary: no complaints Exam/Review of Systems Vital Signs Vitals Vital Signs Date Time Temp Pulse Resp B/P Pulse Ox O2 Delivery O2 Flow Rate FiO2 11/20/16 23:00 2.0 11/20/16 20:53 98.1 110 16 164/67 94 11/20/16 20:47 Nasal Cannula Intake and Output 11/20/16 11/20/16 11/21/16 15:00 23:00 07:00 Intake Total 200 ml 360 ml 1040 ml Balance 200 ml 360 ml 1040 ml Exam Neck: No jvd Respiratory: diminished breath sounds (only few rhonchi bilat without rales ( improved from yesterdayu)) Cardiovascular: regular rate and rhythm Gastrointestinal: soft Extremities: No edema (and no calf tend) Results Result Diagram: 11/21/16 0525 11/21/16 0525 Results 24 hrs Laboratory Tests Test 11/20/16 12:15 11/21/16 05:25 White Blood Count 5.5 5.2 Red Blood Count 4.22 4.43 Hemoglobin 12.0 12.6 Hematocrit 38.5 40.8 Mean Corpuscular Volume 91.2 92.1 Mean Corpuscular Hemoglobin 28.4 L 28.4 L Mean Corpuscular Hemoglobin Concent 31.2 L 30.9 L Red Cell Distribution Width 15.1 H 15.1 H Platelet Count 107 L Pending Mean Platelet Volume 10.3 10.5 H Neutrophils % 52.0 55.6 Lymphocytes % 36.0 29.3 Monocytes % 12.0 H 12.4 H Neutrophils # 2.9 2.9 Lymphocytes # 2.0 1.5 Monocytes # 0.7 0.6 Platelet Estimate PLT APPEAR ADEQUATE Clumped Platelets FEW Sodium Level 138 136 Potassium Level 3.8 4.1 Chloride Level 102 103 Carbon Dioxide Level 28 28 Anion Gap 12 9 Blood Urea Nitrogen 10 10 Creatinine 0.60 0.66 Glucose Level 94 106 Calcium Level 8.7 8.9 Phosphorus Level 3.3 3.4 Magnesium Level 1.8 1.8 Eosinophils % 0.2 Basophils % 0.2 Nucleated Red Blood Cells % 0.0 Eosinophils # 0.0 Basophils # 0.0 Nucleated Red Blood Cells # 0.0 Total Bilirubin 0.0 L Direct Bilirubin 0.00 Indirect Bilirubin 0.0 Aspartate Amino Transf (AST/SGOT) 16 Alanine Aminotransferase (ALT/SGPT) 27 Alkaline Phosphatase 161 H Total Protein 6.3 Albumin 3.5 Globulin 2.80 Albumin/Globulin Ratio 1.25 Phenytoin (Dilantin) Level 7.9 L Medications Medications Current Medications Dextrose/Sodium Chloride (D5-1/2ns) 1,000 ml @ 80 mls/hr [id number] IV Last administered on 11/20/16 09:09; Admin Dose 80 MLS/HR; Start 11/18/16 at 18:57 Ondansetron HCl (Zofran Inj) 4 mg Q6H PRN IV NAUSEA AND/OR VOMITING Last administered on 11/18/16 21:49; Admin Dose 4 MG; Start 11/18/16 at 19:00 Acetaminophen (Tylenol Tab) 650 mg Q6H PRN PO PAIN LEVEL 1-3 OR FEVER Last administered on 11/21/16 05:11; Admin Dose 650 MG; Start 11/18/16 at 19:00 Pantoprazole (Protonix Tab) 40 mg DAILY@06 PO Last administered on 11/21/16 05 :11; Admin Dose 40 MG; Start 11/19/16 at 06:00 Donepezil HCl (Aricept) 10 mg DAILY PO Last administered on 11/20/16 09:09; Admin Dose 10 MG; Start 11/19/16 at 09:00 Phenytoin (Dilantin) 300 mg HS PO Last administered on 11/20/16 20:59; Admin Dose 300 MG; Start 11/18/16 at 21:00 Multivitamins/ Minerals (Theragran-M) 1 tab DAILY PO Last administered on 09:00; Admin Dose 1 TAB; Start 11/19/16 at 09:00 Loratadine (Claritin) 10 mg DAILY PO Last administered on 11/20/16 09:10; Admin Dose 10 MG; Start 11/19/16 at 09:00 Azithromycin (Zithromax) 250 mg Q24H PO Last administered on 11/20/16 20:59; Admin Dose 250 MG; Start 11/19/16 at 21:00 Enoxaparin Sodium 40 mg 40 mg DAILY SC Last administered on 11/20/16 11:12; Admin Dose 40 MG; Start 11/20/16 at 09:00 Ferric Sodium Gluconate Complex/ Sodium Chloride (Ferrlecit/NS) 110 ml @ 110 mls/hr Q24H IVPB Last administered on 11/20/16 14:15; Admin Dose 110 MLS/HR; Start 11/20/16 at 11:00; Stop 11/24/16 at 11:59 Guaifenesin/ Dextromethorphan 1 tab 1 tab BID PO Last administered on 20:59; Admin Dose 1 TAB; Start 11/20/16 at 09:00 Azithromycin (Zithromax 500mg/ NS (Pmx)) 250 ml @ 250 mls/hr Q24H IVPB Last administered on 11/20/16 13:30; Admin Dose 250 MLS/HR; Start 11/20/16 at 13:30 Loratadine/ Pseudoephedrine Sulfate (Claritin-D 12 Hr) 1 tab Q12 PO Last administered on 11/20/16 20:57; Admin Dose 1 TAB; Start 11/20/16 at 13:30 ALMITA BENNETT MD Nov 21, 2016 08:25
[2016-11-21 08:40] VITALS: BP 122/68; RESP 17
[2016-11-21] MEDS: LORATADINE/PSEUDOEPHED (SR) TAB PO SCH ×2 (09:00→21:07)
[2016-11-21 10:06] LABS: EOSINOPHILS # 0.1 10^3/ul (0.0-0.5); LYMPHOCYTES # 1.4 10^3/ul (0.8-2.9); MONOCYTE # 0.6 10^3/ul (0.3-0.9); NEUTROPHIL # 2.9 10^3/ul (1.6-7.5)
[2016-11-21 10:07] LABS: PLATELET COUNT 92 10^3/UL (140-415)
[2016-11-21] MEDS: DONEPEZIL 10 MG TAB PO SCH (10:41)
[2016-11-21] MEDS: MULTIVITAMINS/MINERALS TAB PO SCH (10:41)
[2016-11-21] MEDS: GUAIFENESIN/DM (SR) TAB PO SCH ×2 (10:41→21:07)
[2016-11-21] MEDS: ENOXAPARIN 40 MG/0.4 ML SYG SC SCH (10:43)
[2016-11-21] MEDS: SOD FERRIC GLUC COMPLX 125 MG in SOD CHLORIDE 0.9% 100 ML IVPB SCH (10:44)
--- NOTE | 2016-11-21 10:49 | RADRPT ---
PROCEDURE: CT CHEST WITHOUT CONTRAST CLINICAL INDICATION: Shortness of breath , rule out pneumonia TECHNIQUE: Volumetrically acquired images of the thorax obtained without intravenous contrast were reformatted in the axial, coronal, and sagittal planes. CTDI = 12.2 mGy; DLP = 430 mGy-cm. One or more of the following dose reduction technique were used: Automatic exposure control, adjustment of the mA and/or kV according to patient size, and use of iterative reconstruction technique. COMPARISON: Chest x-ray from 11/18/2016. FINDINGS: LOWER NECK AND CHEST WALL: Normal. AIRWAYS: The trachea and large airways are normal. Moderate bronchial wall thickening is seen. LUNGS: Areas of pleural parenchymal scarring are seen. The lungs otherwise clear. No suspicious nod ules, masses, or consolidation. PLEURA: Unremarkable. No pleural thickening or effusions. MEDIASTINUM: No mediastinal mass. LYMPH NODES: No significant axillary, hilar, or mediastinal lymphadenopathy by CT size criteria. CARDIAC: The heart size is normal. No pericardial effusion or thickening. VASCULAR: The aorta and main pulmonary artery are normal in caliber. Aortic and coronary atheroscl erotic calcifications are present. OSSEOUS: No suspicious osseous lesions. Scattered degenerative changes of the thoracic spine is vis ualized. There is a thoracic kyphosis. Limited evaluation of the upper abdomen is unremarkable. IMPRESSION: 1. No intra-thoracic mass, lymphadenopathy, or focal acute consolidation. 2. Moderate bronchial wall thickening may be sequela of bronchitis, asthma, or other nonspecific ai rway inflammation. . RPTAT:PP .Juan Luis Mcleod MD, Date Time Electronically viewed and signed by .Juan Luis Mcleod MD, MD on 11/21/2016 10:48 .V/
[2016-11-21] MEDS: DEXTROSE 5%-0.45% NACL 1,000 ML IV SCH (12:27)
[2016-11-21] MEDS: AZITHROMYCIN 500MG/NS (PMX) 250 ML IVPB SCH (14:12)
--- NOTE | 2016-11-21 15:07 | CONS ---
Date/Time of Note Date/Time of Note DATE: 11/21/16 TIME: 15:04 Consult Date/Type/Reason Admit Date/Time Nov 20, 2016 at 14:21 Initial Consult Date 11/20/16 Type of Consultation: pulmonary Subjective Patient comfortable this morning complains of mild shortness of breath no cough or sputum production Objective Vital Signs Date Time Temp Pulse Resp B/P Pulse Ox O2 Delivery O2 Flow Rate FiO2 11/21/16 08:40 75 18 96 Nasal Cannula 2.0 11/21/16 08:40 98.2 122/68 Intake and Output 11/20/16 11/20/16 11/21/16 15:00 23:00 07:00 Intake Total 200 ml 360 ml 1040 ml Balance 200 ml 360 ml 1040 ml Exam GENERAL: Elderly lady comfortable at rest sitting up in bed VITAL SIGNS: per chart NECK: Supple. No JVD or lymphadenopathy. CARDIAC EXAM: S1, S2. No added sounds or murmurs. CHEST: clear bilaterally, No added sounds, rales or wheezes ABDOMEN: Soft, nontender. No guarding or rebound. EXTREMITIES: No cyanosis, clubbing or edema. NEUROLOGIC: Generalized weakness. No focal deficits. Results/Medications Result Diagram: 11/21/16 0525 11/21/16 0525 Results 24 hrs Laboratory Tests Test 11/21/16 05:25 White Blood Count 5.2 Red Blood Count 4.43 Hemoglobin 12.6 Hematocrit 40.8 Mean Corpuscular Volume 92.1 Mean Corpuscular Hemoglobin 28.4 L Mean Corpuscular Hemoglobin Concent 30.9 L Red Cell Distribution Width 15.1 H Platelet Count 92 L Mean Platelet Volume 10.5 H Neutrophils % 55.0 Lymphocytes % 27.0 Reactive Lymphocytes % 6.0 Monocytes % 11.0 Eosinophils % 1.0 Basophils % Nucleated Red Blood Cells % Neutrophils # 2.9 Lymphocytes # 1.4 Monocytes # 0.6 Eosinophils # 0.1 Basophils # Nucleated Red Blood Cells # Differential Comment MANUAL DIFF Sodium Level 136 Potassium Level 4.1 Chloride Level 103 Carbon Dioxide Level 28 Anion Gap 9 Blood Urea Nitrogen 10 Creatinine 0.66 Glucose Level 106 Calcium Level 8.9 Phosphorus Level 3.4 Magnesium Level 1.8 Total Bilirubin 0.0 L Direct Bilirubin 0.00 Indirect Bilirubin 0.0 Aspartate Amino Transf (AST/SGOT) 16 Alanine Aminotransferase (ALT/SGPT) 27 Alkaline Phosphatase 161 H Total Protein 6.3 Albumin 3.5 Globulin 2.80 Albumin/Globulin Ratio 1.25 Phenytoin (Dilantin) Level 7.9 L Medications Current Medications Dextrose/Sodium Chloride (D5-1/2ns) 1,000 ml @ 20 mls/hr Q24H IV Last administered on 11/20/16 09:09; Admin Dose 80 MLS/HR; Start 11/18/16 at 18:57 Ondansetron HCl (Zofran Inj) 4 mg Q6H PRN IV NAUSEA AND/OR VOMITING Last administered on 11/18/16 21:49; Admin Dose 4 MG; Start 11/18/16 at 19:00 Acetaminophen (Tylenol Tab) 650 mg Q6H PRN PO PAIN LEVEL 1-3 OR FEVER Last administered on 11/21/16 05:11; Admin Dose 650 MG; Start 11/18/16 at 19:00 Pantoprazole (Protonix Tab) 40 mg DAILY@06 PO Last administered on 11/21/16 05 :11; Admin Dose 40 MG; Start 11/19/16 at 06:00 Donepezil HCl (Aricept) 10 mg DAILY PO Last administered on 11/21/16 10:41; Admin Dose 10 MG; Start 11/19/16 at 09:00 Phenytoin (Dilantin) 300 mg HS PO Last administered on 11/20/16 20:59; Admin Dose 300 MG; Start 11/18/16 at 21:00 Multivitamins/ Minerals (Theragran-M) 1 tab DAILY PO Last administered on 10:41; Admin Dose 1 TAB; Start 11/19/16 at 09:00 Enoxaparin Sodium 40 mg 40 mg DAILY SC Last administered on 11/21/16 10:43; Admin Dose 40 MG; Start 11/20/16 at 09:00 Ferric Sodium Gluconate Complex/ Sodium Chloride (Ferrlecit/NS) 110 ml @ 110 mls/hr Q24H IVPB Last administered on 11/21/16 10:44; Admin Dose 110 MLS/HR; Start 11/20/16 at 11:00; Stop 11/24/16 at 11:59 Guaifenesin/ Dextromethorphan 1 tab 1 tab BID PO Last administered on 4/28/ 17at 10:41; Admin Dose 1 TAB; Start 11/20/16 at 09:00 Azithromycin (Zithromax 500mg/ NS (Pmx)) 250 ml @ 250 mls/hr Q24H IVPB Last administered on 11/21/16 14:12; Admin Dose 250 MLS/HR; Start 11/20/16 at 13:30 Loratadine/ Pseudoephedrine Sulfate (Claritin-D 12 Hr) 1 tab Q12 PO Last administered on 11/20/16 20:57; Admin Dose 1 TAB; Start 11/20/16 at 13:30 Assessment/Plan Chief Complaint/Hosp Course Assessment 1. Possible tracheobronchitis 2. No focal pneumonia 3. Thrombocytopenia Plan 1. Agree with de-escalation of antibiotics 2. Aspiration precautions 3. Discharge planning okay from pulmonary standpoint Problems: OLIVE HARP MD, [facility] Nov 21, 2016 15:07
[2016-11-21] MEDS ORDERED: BACITRACIN 0.9 GM OINT TOP ONE (21:00)
[2016-11-21] MEDS: PHENYTOIN 100 MG CAP PO SCH (21:07)
[2016-11-21 21:20] VITALS: BP 112/56; RESP 18
[2016-11-22] MEDS: ALBUTEROL/IPRATROPIUM (NEB) 3 ML AMP HHN SCH ×6 (01:00→21:05)
[2016-11-22] MEDS: PANTOPRAZOLE (EC) 40 MG TAB PO SCH (06:04)
--- NOTE | 2016-11-22 07:41 | CONS ---
Date/Time of Note Date/Time of Note DATE: 11/22/16 TIME: 07:37 Assessment/Plan Assessment/Plan Chief Complaint/Hosp Course 1) 3 weeks of chest and nasal congestion, s/p fall and L lower rib fx increase in monocytes with normal WBC and slightly low platelets is more suggestive of viral etiology CXR was neg, chest CT is pending on azithro/merrem at present but if chest CT is unimpressive will d/c merrem sputum cx and nasal cx sent check procalcitonin pt is refusing breathing treatments will try xopenox inhaler 11/21 - clinically improved continue with azithro/merrem will re-order chest CT and now stat sputum cx was neg viral PCR of nares was sent off yesterday 11/22 - no silverio pneumonia on CT chest but areas suggestive of bronchitis MRSA cx from nasal area but sputum cx was NGTD will change azithromycin to po doxycycline to cover atypicals and MRSA 2) fibromyalgia 3) seizure disorder 4) hx of kidney stone and recent UTI u/a is not impressive 11/21 - urine cx has only 10-20k mixed GPC which is not significant 5) hx of breast CA 6) LUE phlebitis 11/22 - d/c IV and start doxycycline check cbc in a.m. Problems: Consultation Date/Type/Reason Admit Date/Time Nov 20, 2016 at 14:21 Initial Consult Date 11/20/16 Type of Consultation: ID 24 HR Interval Summary Free Text/Dictation pt states breathing is ok no N, V, D site of IV on RUE has some pain and redness Exam/Review of Systems Vital Signs Vitals Vital Signs Date Time Temp Pulse Resp B/P Pulse Ox O2 Delivery O2 Flow Rate FiO2 11/21/16 23:00 2.0 11/21/16 21:20 98.4 81 18 112/56 93 11/21/16 20:18 Nasal Cannula Intake and Output 11/21/16 11/21/16 11/22/16 15:00 23:00 07:00 Intake Total 110 ml 1270 ml Balance 110 ml 1270 ml Exam Constitutional: alert Head: normocephalic Eyes: nl sclera ENMT: mucosa pink and moist Respiratory: other (bibasilar crackles) Cardiovascular: regular rate and rhythm Gastrointestinal: non-tender, soft Extremities: other (L forearm IV site has some redness that extends up to antecubital area with some tenderness) Results Result Diagram: 11/21/1625 11/21/16524 Medications Medications Current Medications Dextrose/Sodium Chloride (D5-1/2ns) 1,000 ml @ 20 mls/hr Q24H IV Last administered on 11/20/16 09:09; Admin Dose 80 MLS/HR; Start 11/18/16 at 18:57 Ondansetron HCl (Zofran Inj) 4 mg Q6H PRN IV NAUSEA AND/OR VOMITING Last administered on 11/18/16 21:49; Admin Dose 4 MG; Start 11/18/16 at 19:00 Acetaminophen (Tylenol Tab) 650 mg Q6H PRN PO PAIN LEVEL 1-3 OR FEVER Last administered on 11/21/16 18:16; Admin Dose 650 MG; Start 11/18/16 at 19:00 Pantoprazole (Protonix Tab) 40 mg DAILY@06 PO Last administered on 11/22/16 06 :04; Admin Dose 40 MG; Start 11/19/16 at 06:00 Donepezil HCl (Aricept) 10 mg DAILY PO Last administered on 11/21/16 10:41; Admin Dose 10 MG; Start 11/19/16 at 09:00 Phenytoin (Dilantin) 300 mg HS PO Last administered on 11/21/16 21:07; Admin Dose 300 MG; Start 11/18/16 at 21:00 Multivitamins/ Minerals (Theragran-M) 1 tab DAILY PO Last administered on 10:41; Admin Dose 1 TAB; Start 11/19/16 at 09:00 Enoxaparin Sodium 40 mg 40 mg DAILY SC Last administered on 11/21/16 10:43; Admin Dose 40 MG; Start 11/20/16 at 09:00 Ferric Sodium Gluconate Complex/ Sodium Chloride (Ferrlecit/NS) 110 ml @ 110 mls/hr Q24H IVPB Last administered on 11/21/16 10:44; Admin Dose 110 MLS/HR; Start 11/20/16 at 11:00; Stop 11/24/16 at 11:59 Guaifenesin/ Dextromethorphan 1 tab 1 tab BID PO Last administered on 21:07; Admin Dose 1 TAB; Start 11/20/16 at 09:00 Azithromycin (Zithromax 500mg/ NS (Pmx)) 250 ml @ 250 mls/hr Q24H IVPB Last administered on 11/21/16 14:12; Admin Dose 250 MLS/HR; Start 11/20/16 at 13:30 Loratadine/ Pseudoephedrine Sulfate (Claritin-D 12 Hr) 1 tab Q12 PO Last administered on 11/21/16 21:07; Admin Dose 1 TAB; Start 11/20/16 at 13:30 BLAS CARDOSO MD Nov 22, 2016 07:41
[2016-11-22 08:00] VITALS: BP 130/77; RESP 18
[2016-11-22] MEDS: ENOXAPARIN 40 MG/0.4 ML SYG SC SCH (10:51)
[2016-11-22] MEDS: DOXYCYCLINE 100 MG TAB PO SCH ×2 (10:54→20:25)
[2016-11-22] MEDS: GUAIFENESIN/DM (SR) TAB PO SCH ×2 (10:54→20:25)
[2016-11-22] MEDS: LORATADINE/PSEUDOEPHED (SR) TAB PO SCH ×2 (10:54→20:25)
[2016-11-22] MEDS: ACETAMINOPHEN 325 MG TAB PO PRN ×3 (10:54→22:53)
[2016-11-22] MEDS: DONEPEZIL 10 MG TAB PO SCH (10:54)
[2016-11-22] MEDS: MULTIVITAMINS/MINERALS TAB PO SCH (10:54)
[2016-11-22] MEDS: SOD FERRIC GLUC COMPLX 125 MG in SOD CHLORIDE 0.9% 100 ML IVPB SCH (11:00)
--- NOTE | 2016-11-22 11:23 | CONS ---
Date/Time of Note Date/Time of Note DATE: 11/22/16 TIME: 11:21 Assessment/Plan Assessment/Plan Additional Assessment/Plan Assessment recommendations; 1. Patient admitted with acute bronchitis with sinusitis improving. 2. History of fibromyalgia. 3. History of breast cancer. 4. History of psoriasis. Continue current treatment. Patient can be discharged either to home or fpc from pulmonary perspective. We will sign off. Thanks for the referral. Consultation Date/Type/Reason Admit Date/Time Nov 20, 2016 at 14:21 Initial Consult Date 11/20/16 Type of Consultation: Pulmonary 24 HR Interval Summary Free Text/Dictation Patient condition stable. Complains of occasional cough. Denies any sputum production, any wheezing, complains of occasional chest pain involving the left lateral chest wall with deep breathing. General exam; elderly lady, awake alert currently in no distress. Exam/Review of Systems Vital Signs Vitals Vital Signs Date Time Temp Pulse Resp B/P Pulse Ox O2 Delivery O2 Flow Rate FiO2 11/22/16 08:00 98.3 18 130/77 96 11/21/16 23:00 2.0 11/21/16 21:20 81 11/21/16 20:18 Nasal Cannula Intake and Output 11/21/16 11/21/16 11/22/16 15:00 23:00 07:00 Intake Total 110 ml 1270 ml 240 ml Balance 110 ml 1270 ml 240 ml Exam HEENT exam is; supple neck, no JVD. No lymphadenopathy. Midline trachea. No thyromegaly. Pharynx is clear. Chest examination; clear to auscultation. No added sound. S1-S2 audible, no murmurs. Regular rhythm. There is mild tenderness involving the left lateral chest wall. Abdomen examination; soft, no organomegaly. No tenderness. Bowel sounds audible. Extremity examination; no peripheral edema. [employer] examination; no focal deficit. Results Result Diagram: 11/21/16 0525 11/21/1625 Medications Medications Current Medications Ondansetron HCl (Zofran Inj) 4 mg Q6H PRN IV NAUSEA AND/OR VOMITING Last administered on 11/18/16 21:49; Admin Dose 4 MG; Start 11/18/16 at 19:00 Acetaminophen (Tylenol Tab) 650 mg Q6H PRN PO PAIN LEVEL 1-3 OR FEVER Last administered on 11/22/16 10:54; Admin Dose 650 MG; Start 11/18/16 at 19:00 Pantoprazole (Protonix Tab) 40 mg DAILY@06 PO Last administered on 11/22/16 06 :04; Admin Dose 40 MG; Start 11/19/16 at 06:00 Donepezil HCl (Aricept) 10 mg DAILY PO Last administered on 11/22/16 10:54; Admin Dose 10 MG; Start 11/19/16 at 09:00 Phenytoin (Dilantin) 300 mg HS PO Last administered on 11/21/16 21:07; Admin Dose 300 MG; Start 11/18/16 at 21:00 Multivitamins/ Minerals (Theragran-M) 1 tab DAILY PO Last administered on 10:54; Admin Dose 1 TAB; Start 11/19/16 at 09:00 Enoxaparin Sodium 40 mg 40 mg DAILY SC Last administered on 11/22/16 10:51; Admin Dose 40 MG; Start 11/20/16 at 09:00 Ferric Sodium Gluconate Complex/ Sodium Chloride (Ferrlecit/NS) 110 ml @ 110 mls/hr Q24H IVPB Last administered on 11/21/16 10:44; Admin Dose 110 MLS/HR; Start 11/20/16 at 11:00; Stop 11/24/16 at 11:59 Guaifenesin/ Dextromethorphan (Mucinex Dm) 1 tab BID PO Last administered on 10:54; Admin Dose 1 TAB; Start 11/20/16 at 09:00 Loratadine/ Pseudoephedrine Sulfate (Claritin-D 12 Hr) 1 tab Q12 PO Last administered on 11/22/16 10:54; Admin Dose 1 TAB; Start 11/20/16 at 13:30 Doxycycline Hyclate (Vibramycin) 100 mg BID PO Last administered on 11/22/16 10:54; Admin Dose 100 MG; Start 11/22/16 at 09:00 TAMIKO CLEMENTS Nov 22, 2016 11:23
--- NOTE | 2016-11-22 11:56 | PN ---
Date/Time of Note Date/Time of Note DATE: 11/22/16 TIME: 11:52 Assessment/Plan VTE Prophylaxis VTE Prophylaxis Intervention: anti-embolic stocking Lines/Catheters IV Catheter Type (from Nrs): Peripheral IV Urinary Cath still in place: No Assessment/Plan Assessment/Plan Acute Bronchitis - CT chest negative for consolidation. MRSA cx nasal +. Sputum cx negative. - Abx changed to PO doxy to cover atypicals and MRSA - ambulate - d/c tomorrow LUE phlebitis - IV removed - f/u CBC tomm fibromyalgia - stable seizure disorder - stable Subjective 24 Hr Interval Summary Constitutional: other (reports feeling"bad" like her breathing is difficult) Respiratory: cough, shortness of breath Exam/Review of Systems Vital Signs Vitals Vital Signs Date Time Temp Pulse Resp B/P Pulse Ox O2 Delivery O2 Flow Rate FiO2 11/22/16 08:00 98.3 18 130/77 96 11/21/16 23:00 2.0 11/21/16 21:20 81 11/21/16 20:18 Nasal Cannula Intake and Output 11/21/16 11/21/16 11/22/16 15:00 23:00 07:00 Intake Total 110 ml 1270 ml 240 ml Balance 110 ml 1270 ml 240 ml Exam Constitutional: alert, oriented, well developed Respiratory: clear to auscultation, normal air movement Cardiovascular: nl pulses, regular rate and rhythm Results Result Diagram: 11/21/16 0525 11/21/16 0525 Medications Medications Current Medications Ondansetron HCl (Zofran Inj) 4 mg Q6H PRN IV NAUSEA AND/OR VOMITING Last administered on 11/18/16 21:49; Admin Dose 4 MG; Start 11/18/16 at 19:00 Acetaminophen (Tylenol Tab) 650 mg Q6H PRN PO PAIN LEVEL 1-3 OR FEVER Last administered on 11/22/16 10:54; Admin Dose 650 MG; Start 11/18/16 at 19:00 Pantoprazole (Protonix Tab) 40 mg DAILY@06 PO Last administered on 11/22/16 06 :04; Admin Dose 40 MG; Start 11/19/16 at 06:00 Donepezil HCl (Aricept) 10 mg DAILY PO Last administered on 11/22/16 10:54; Admin Dose 10 MG; Start 11/19/16 at 09:00 Phenytoin (Dilantin) 300 mg HS PO Last administered on 11/21/16 21:07; Admin Dose 300 MG; Start 11/18/16 at 21:00 Multivitamins/ Minerals (Theragran-M) 1 tab DAILY PO Last administered on 10:54; Admin Dose 1 TAB; Start 11/19/16 at 09:00 Enoxaparin Sodium 40 mg 40 mg DAILY SC Last administered on 11/22/16 10:51; Admin Dose 40 MG; Start 11/20/16 at 09:00 Ferric Sodium Gluconate Complex/ Sodium Chloride (Ferrlecit/NS) 110 ml @ 110 mls/hr Q24H IVPB Last administered on 11/21/16 10:44; Admin Dose 110 MLS/HR; Start 11/20/16 at 11:00; Stop 11/24/16 at 11:59 Guaifenesin/ Dextromethorphan (Mucinex Dm) 1 tab BID PO Last administered on 10:54; Admin Dose 1 TAB; Start 11/20/16 at 09:00 Loratadine/ Pseudoephedrine Sulfate (Claritin-D 12 Hr) 1 tab Q12 PO Last administered on 11/22/16 10:54; Admin Dose 1 TAB; Start 11/20/16 at 13:30 Doxycycline Hyclate (Vibramycin) 100 mg BID PO Last administered on 11/22/16 10:54; Admin Dose 100 MG; Start 11/22/16 at 09:00 ALIS MILIAN MD Nov 22, 2016 11:56
[2016-11-22 20:11] VITALS: BP 141/75; RESP 20
[2016-11-22] MEDS: PHENYTOIN 100 MG CAP PO SCH (20:25)
[2016-11-23] MEDS: ALBUTEROL/IPRATROPIUM (NEB) 3 ML AMP HHN SCH ×6 (00:58→20:40)
[2016-11-23] MEDS: PANTOPRAZOLE (EC) 40 MG TAB PO SCH (05:52)
[2016-11-23] MEDS: ACETAMINOPHEN 325 MG TAB PO PRN ×2 (05:53→21:52)
[2016-11-23 06:08] LABS: ADD SCAN DIFF NO
[2016-11-23 06:15] LABS: ABNORMAL IP MESSAGE 1; BASOPHILS % 0.2 % (0.0-2.0); EOSINOPHILS % 0.2 % (0.0-7.0); HEMATOCRIT 37.8 % (37.0-47.0); HEMOGLOBIN 11.8 g/dl (12.0-16.0); LYMPHOCYTES # 1.9 10^3/ul (0.8-2.9); LYMPHOCYTES % 42.8 % (15.0-51.0); MEAN CORPUSCULAR HEMOGLOBIN 28.6 pg (29.0-33.0); MEAN CORPUSCULAR HGB CONC 31.2 g/dl (32.0-37.0); MEAN CORPUSCULAR VOLUME 91.7 fl (82.0-101.0); MEAN PLATELET VOLUME 10.3 fl (7.4-10.4); MONOCYTE # 0.7 10^3/ul (0.3-0.9); MONOCYTES % 16.1 % (0.0-11.0); NEUTROPHIL # 1.7 10^3/ul (1.6-7.5); NEUTROPHILS % 36.7 % (39.0-77.0); PLATELET COUNT 92 10^3/UL (140-415); RED BLOOD COUNT 4.12 10^6/ul (4.20-5.40); RED CELL DISTRIBUTION WIDTH 15.1 % (11.5-14.5); WHITE BLOOD COUNT 4.5 10^3/ul (4.8-10.8)
[2016-11-23 06:32] LABS: ALBUMIN 3.2 g/dl (3.3-4.9); POTASSIUM 4.3 mmol/L (3.5-5.1)
[2016-11-23 06:35] LABS: ALBUMIN/GLOBULIN RATIO 1.18; BILIRUBIN,INDIRECT 0.2 mg/dl (0-1.1); BILIRUBIN,TOTAL 0.2 mg/dl (0.2-1.3); CALCIUM 9.2 mg/dl (8.4-10.2); CREATININE 0.65 mg/dl (0.44-1.00); TOTAL PROTEIN 5.9 g/dl (6.1-8.1)
--- NOTE | 2016-11-23 07:33 | CONS ---
Date/Time of Note Date/Time of Note DATE: 11/23/16 TIME: 07:30 Assessment/Plan Assessment/Plan Chief Complaint/Hosp Course 1) 3 weeks of chest and nasal congestion, s/p fall and L lower rib fx increase in monocytes with normal WBC and slightly low platelets is more suggestive of viral etiology CXR was neg, chest CT is pending on azithro/merrem at present but if chest CT is unimpressive will d/c merrem sputum cx and nasal cx sent check procalcitonin pt is refusing breathing treatments will try xopenox inhaler 11/21 - clinically improved continue with azithro/merrem will re-order chest CT and now stat sputum cx was neg viral PCR of nares was sent off yesterday 11/22 - no silverio pneumonia on CT chest but areas suggestive of bronchitis MRSA cx from nasal area but sputum cx was NGTD will change azithromycin to po doxycycline to cover atypicals and MRSA 11/23 - pt is stable continue with doxy for another 7 days 2) fibromyalgia 3) seizure disorder 4) hx of kidney stone and recent UTI u/a is not impressive 11/21 - urine cx has only 10-20k mixed GPC which is not significant 5) hx of breast CA 6) LUE phlebitis 11/22 - d/c IV and start doxycycline check cbc in a.m. 11/23 - wbc is good and swelling is decreased Problems: Consultation Date/Type/Reason Admit Date/Time Nov 20, 2016 at 14:21 Initial Consult Date 11/20/16 Type of Consultation: ID 24 HR Interval Summary Free Text/Dictation no change Exam/Review of Systems Vital Signs Vitals Vital Signs Date Time Temp Pulse Resp B/P Pulse Ox O2 Delivery O2 Flow Rate FiO2 11/23/16 05:00 75 18 94 21 11/22/16 20:11 97.7 141/75 11/22/16 20:00 Nasal Cannula 2.0 Intake and Output 11/22/16 11/22/16 11/23/16 15:00 23:00 07:00 Intake Total 1070 ml 240 ml Balance 1070 ml 240 ml Results Result Diagram: 11/23/16 0535 11/23/16 0535 Results 24 hrs Laboratory Tests Test 11/23/16 05:35 White Blood Count 4.5 L Red Blood Count 4.12 L Hemoglobin 11.8 L Hematocrit 37.8 Mean Corpuscular Volume 91.7 Mean Corpuscular Hemoglobin 28.6 L Mean Corpuscular Hemoglobin Concent 31.2 L Red Cell Distribution Width 15.1 H Platelet Count 92 L Mean Platelet Volume 10.3 Neutrophils % 36.7 L Lymphocytes % 42.8 Monocytes % 16.1 H Eosinophils % 0.2 Basophils % 0.2 Nucleated Red Blood Cells % 0.0 Neutrophils # 1.7 Lymphocytes # 1.9 Monocytes # 0.7 Eosinophils # 0.0 Basophils # 0.0 Nucleated Red Blood Cells # 0.0 Sodium Level 141 Potassium Level 4.3 Chloride Level 103 Carbon Dioxide Level 30 Anion Gap 12 Blood Urea Nitrogen 12 Creatinine 0.65 Glucose Level 102 Calcium Level 9.2 Total Bilirubin 0.2 Direct Bilirubin 0.00 Indirect Bilirubin 0.2 Aspartate Amino Transf (AST/SGOT) 17 Alanine Aminotransferase (ALT/SGPT) 28 Alkaline Phosphatase 129 H Total Protein 5.9 L Albumin 3.2 L Globulin 2.70 Albumin/Globulin Ratio 1.18 Medications Medications Current Medications Ondansetron HCl (Zofran Inj) 4 mg Q6H PRN IV NAUSEA AND/OR VOMITING Last administered on 11/18/16 21:49; Admin Dose 4 MG; Start 11/18/16 at 19:00 Pantoprazole (Protonix Tab) 40 mg DAILY@06 PO Last administered on 11/23/16 05 :52; Admin Dose 40 MG; Start 11/19/16 at 06:00 Donepezil HCl (Aricept) 10 mg DAILY PO Last administered on 11/22/16 10:54; Admin Dose 10 MG; Start 11/19/16 at 09:00 Phenytoin (Dilantin) 300 mg HS PO Last administered on 11/22/16 20:25; Admin Dose 300 MG; Start 11/18/16 at 21:00 Multivitamins/ Minerals (Theragran-M) 1 tab DAILY PO Last administered on 10:54; Admin Dose 1 TAB; Start 11/19/16 at 09:00 Enoxaparin Sodium 40 mg 40 mg DAILY SC Last administered on 11/22/16 10:51; Admin Dose 40 MG; Start 11/20/16 at 09:00 Ferric Sodium Gluconate Complex/ Sodium Chloride (Ferrlecit/NS) 110 ml @ 110 mls/hr Q24H IVPB Last administered on 11/21/16 10:44; Admin Dose 110 MLS/HR; Start 11/20/16 at 11:00; Stop 11/24/16 at 11:59 Guaifenesin/ Dextromethorphan (Mucinex Dm) 1 tab BID PO Last administered on 20:25; Admin Dose 1 TAB; Start 11/20/16 at 09:00 Loratadine/ Pseudoephedrine Sulfate (Claritin-D 12 Hr) 1 tab Q12 PO Last administered on 11/22/16 20:25; Admin Dose 1 TAB; Start 11/20/16 at 13:30 Doxycycline Hyclate (Vibramycin) 100 mg BID PO Last administered on 11/22/16 20:25; Admin Dose 100 MG; Start 11/22/16 at 09:00 Acetaminophen (Tylenol Tab) 650 mg Q4 PRN PO PAIN LEVEL 1-3 OR FEVER Last administered on 11/23/16 05:53; Admin Dose 650 MG; Start 11/22/16 at 22:05 BLAS CARDOSO MD Nov 23, 2016 07:33
[2016-11-23 08:00] VITALS: BP 110/55; RESP 19
[2016-11-23] MEDS: LORATADINE/PSEUDOEPHED (SR) TAB PO SCH ×2 (08:59→21:33)
[2016-11-23] MEDS: DOXYCYCLINE 100 MG TAB PO SCH ×2 (08:59→21:33)
[2016-11-23] MEDS: ENOXAPARIN 40 MG/0.4 ML SYG SC SCH (08:59)
[2016-11-23] MEDS: DONEPEZIL 10 MG TAB PO SCH (08:59)
[2016-11-23] MEDS: MULTIVITAMINS/MINERALS TAB PO SCH (08:59)
[2016-11-23] MEDS: GUAIFENESIN/DM (SR) TAB PO SCH ×2 (08:59→21:33)
[2016-11-23] MEDS: ONDANSETRON (ODT) 4 MG TAB ODT PRN ×2 (10:34→16:32)
[2016-11-23] MEDS: SOD FERRIC GLUC COMPLX 125 MG in SOD CHLORIDE 0.9% 100 ML IVPB SCH (10:51)
[2016-11-23] MEDS ORDERED: DOXY100T2 PO (10:55)
--- NOTE | 2016-11-23 10:58 | PN ---
Date/Time of Note Date/Time of Note DATE: 11/23/16 TIME: 10:57 Assessment/Plan VTE Prophylaxis VTE Prophylaxis Intervention: anti-embolic stocking Lines/Catheters [facility] Peripheral IV Urinary Cath still in place: No Assessment/Plan Assessment/Plan Acute Bronchitis - CT chest negative for consolidation. MRSA cx nasal +. Sputum cx negative. - Abx changed to PO doxy to cover atypicals and MRSA --> continue for 7 more days - medically stable for d/c. However, does not want to go back to [facility] at [place], and daughter is having surgery on Thursday so cannot take care of her. Case management aware, will work on dispo today LUE phlebitis - IV removed - stable Subjective 24 Hr Interval Summary Free Text/Dictation Patient still thinks she is very sick and is not getting better. on room air, ambulating well per nursing. Exam/Review of Systems Vital Signs Vitals Vital Signs Date Time Temp Pulse Resp B/P Pulse Ox O2 Delivery O2 Flow Rate FiO2 11/23/16 08:00 98.0 82 19 110/55 98 11/23/16 05:00 21 11/22/16 20:00 Nasal Cannula 2.0 Intake and Output 11/22/16 11/22/16 11/23/16 15:00 23:00 07:00 Intake Total 1070 ml 240 ml Balance 1070 ml 240 ml Exam Respiratory: clear to auscultation, normal air movement Cardiovascular: nl pulses, regular rate and rhythm Gastrointestinal: bowel sounds, nl liver, spleen, non-tender, soft Results Result Diagram: 11/23/16 0535 11/23/16 0535 Results 24 hrs Laboratory Tests Test 11/23/16 05:35 White Blood Count 4.5 L Red Blood Count 4.12 L Hemoglobin 11.8 L Hematocrit 37.8 Mean Corpuscular Volume 91.7 Mean Corpuscular Hemoglobin 28.6 L Mean Corpuscular Hemoglobin Concent 31.2 L Red Cell Distribution Width 15.1 H Platelet Count 92 L Mean Platelet Volume 10.3 Neutrophils % 36.7 L Lymphocytes % 42.8 Monocytes % 16.1 H Eosinophils % 0.2 Basophils % 0.2 Nucleated Red Blood Cells % 0.0 Neutrophils # 1.7 Lymphocytes # 1.9 Monocytes # 0.7 Eosinophils # 0.0 Basophils # 0.0 Nucleated Red Blood Cells # 0.0 Sodium Level 141 Potassium Level 4.3 Chloride Level 103 Carbon Dioxide Level 30 Anion Gap 12 Blood Urea Nitrogen 12 Creatinine 0.65 Glucose Level 102 Calcium Level 9.2 Total Bilirubin 0.2 Direct Bilirubin 0.00 Indirect Bilirubin 0.2 Aspartate Amino Transf (AST/SGOT) 17 Alanine Aminotransferase (ALT/SGPT) 28 Alkaline Phosphatase 129 H Total Protein 5.9 L Albumin 3.2 L Globulin 2.70 Albumin/Globulin Ratio 1.18 Medications Medications Current Medications Ondansetron HCl (Zofran Inj) 4 mg Q6H PRN IV NAUSEA AND/OR VOMITING Last administered on 11/18/16 21:49; Admin Dose 4 MG; Start 11/18/16 at 19:00 Pantoprazole (Protonix Tab) 40 mg DAILY@06 PO Last administered on 11/23/16 05 :52; Admin Dose 40 MG; Start 11/19/16 at 06:00 Donepezil HCl (Aricept) 10 mg DAILY PO Last administered on 11/23/16 08:59; Admin Dose 10 MG; Start 11/19/16 at 09:00 Phenytoin (Dilantin) 300 mg HS PO Last administered on 11/22/16 20:25; Admin Dose 300 MG; Start 11/18/16 at 21:00 Multivitamins/ Minerals (Theragran-M) 1 tab DAILY PO Last administered on 08:59; Admin Dose 1 TAB; Start 11/19/16 at 09:00 Enoxaparin Sodium 40 mg 40 mg DAILY SC Last administered on 11/23/16 08:59; Admin Dose 40 MG; Start 11/20/16 at 09:00 Ferric Sodium Gluconate Complex/ Sodium Chloride (Ferrlecit/NS) 110 ml @ 110 mls/hr Q24H IVPB Last administered on 11/21/16 10:44; Admin Dose 110 MLS/HR; Start 11/20/16 at 11:00; Stop 11/24/16 at 11:59 Guaifenesin/ Dextromethorphan (Mucinex Dm) 1 tab BID PO Last administered on 08:59; Admin Dose 1 TAB; Start 11/20/16 at 09:00 Loratadine/ Pseudoephedrine Sulfate (Claritin-D 12 Hr) 1 tab Q12 PO Last administered on 11/23/16 08:59; Admin Dose 1 TAB; Start 11/20/16 at 13:30 Doxycycline Hyclate (Vibramycin) 100 mg BID PO Last administered on 11/23/16 08:59; Admin Dose 100 MG; Start 11/22/16 at 09:00 Acetaminophen (Tylenol Tab) 650 mg Q4 PRN PO PAIN LEVEL 1-3 OR FEVER Last administered on 11/23/16 05:53; Admin Dose 650 MG; Start 11/22/16 at 22:05 Ondansetron HCl (Zofran Odt) 4 mg Q6H PRN ODT NAUSEA Last administered on 10:34; Admin Dose 4 MG; Start 11/23/16 at 10:00 ALIS MILIAN MD Nov 23, 2016 10:58
[2016-11-23 11:20] LABS: PLATELET ESTIMATE PLT APPEAR ADEQUATE
[2016-11-23 11:21] LABS: PLATELETS CLUMPS 2+
[2016-11-23] MEDS: PHENYTOIN 100 MG CAP PO SCH (21:33)
[2016-11-23 21:43] VITALS: BP 119/59; RESP 19
[2016-11-24] MEDS: ALBUTEROL/IPRATROPIUM (NEB) 3 ML AMP HHN SCH ×5 (01:00→17:00)
[2016-11-24 01:56] VITALS: BP 102/58; PULSE 76; RESP 16
[2016-11-24] MEDS: ACETAMINOPHEN 325 MG TAB PO PRN ×2 (05:15→13:47)
[2016-11-24] MEDS: PANTOPRAZOLE (EC) 40 MG TAB PO SCH (05:15)
[2016-11-24 07:10] VITALS: BP 121/58; RESP 18
--- NOTE | 2016-11-24 08:32 | CONS ---
Date/Time of Note Date/Time of Note DATE: 11/24/16 TIME: 08:27 Assessment/Plan Assessment/Plan Chief Complaint/Hosp Course 1. acute bronchitis , continue antibiotics , Iv fluids and breathing treatments . She is overall improved .. 2. nausea , improved 3. debility 4. h/o seizure disorder , no recent seizures . 5. anorexia , improved . 6. MRSA of nares . Problems: Consultation Date/Type/Reason Admit Date/Time Nov 20, 2016 at 14:21 Type of Consultation: ID 24 HR Interval Summary Free Text/Dictation She continues to c/o " chest inflammation " and she has some cough . Exam/Review of Systems Vital Signs Vitals Vital Signs Date Time Temp Pulse Resp B/P Pulse Ox O2 Delivery O2 Flow Rate FiO2 11/24/16 07:10 98.0 91 18 121/58 97 11/24/16 05:26 21 11/24/16 01:56 Room Air 11/22/16 20:00 2.0 Intake and Output 11/23/16 11/23/16 11/24/16 14:59 22:59 06:59 Intake Total 1260 ml 600 ml Balance 1260 ml 600 ml Exam Constitutional: alert, frail, oriented Respiratory: clear to auscultation Cardiovascular: regular rate and rhythm Musculoskeletal: nl extremities to inspection Results Result Diagram: 11/23/16 0535 11/23/16 0535 Medications Medications Current Medications Ondansetron HCl (Zofran Inj) 4 mg Q6H PRN IV NAUSEA AND/OR VOMITING Last administered on 11/18/16 21:49; Admin Dose 4 MG; Start 11/18/16 at 19:00 Pantoprazole (Protonix Tab) 40 mg DAILY@06 PO Last administered on 11/24/16 05: 15; Admin Dose 40 MG; Start 11/19/16 at 06:00 Donepezil HCl (Aricept) 10 mg DAILY PO Last administered on 11/23/16 08:59; Admin Dose 10 MG; Start 11/19/16 at 09:00 Phenytoin (Dilantin) 300 mg HS PO Last administered on 11/23/16 21:33; Admin Dose 300 MG; Start 11/18/16 at 21:00 Multivitamins/ Minerals (Theragran-M) 1 tab DAILY PO Last administered on 08:59; Admin Dose 1 TAB; Start 11/19/16 at 09:00 Enoxaparin Sodium (Lovenox) 40 mg DAILY SC Last administered on 11/23/16 08:59 ; Admin Dose 40 MG; Start 11/20/16 at 09:00 Guaifenesin/ Dextromethorphan (Mucinex Dm) 1 tab BID PO Last administered on 21:33; Admin Dose 1 TAB; Start 11/20/16 at 09:00 Loratadine/ Pseudoephedrine Sulfate (Claritin-D 12 Hr) 1 tab Q12 PO Last administered on 11/23/16 21:33; Admin Dose 1 TAB; Start 11/20/16 at 13:30 Doxycycline Hyclate (Vibramycin) 100 mg BID PO Last administered on 11/23/16 21:33; Admin Dose 100 MG; Start 11/22/16 at 09:00 Acetaminophen (Tylenol Tab) 650 mg Q4 PRN PO PAIN LEVEL 1-3 OR FEVER Last administered on 11/24/16 05:15; Admin Dose 650 MG; Start 11/22/16 at 22:05 Ondansetron HCl (Zofran Odt) 4 mg Q6H PRN ODT NAUSEA Last administered on 16:32; Admin Dose 4 MG; Start 11/23/16 at 10:00 RAQUEL ESPINOZA MD November 24, 2016 08:32
[2016-11-24] MEDS: DONEPEZIL 10 MG TAB PO SCH (09:30)
[2016-11-24] MEDS: GUAIFENESIN/DM (SR) TAB PO SCH (09:30)
[2016-11-24] MEDS: MULTIVITAMINS/MINERALS TAB PO SCH (09:30)
[2016-11-24] MEDS: DOXYCYCLINE 100 MG TAB PO SCH (09:30)
[2016-11-24] MEDS: LORATADINE/PSEUDOEPHED (SR) TAB PO SCH (09:30)
[2016-11-24] MEDS: ENOXAPARIN 40 MG/0.4 ML SYG SC SCH (09:33)
[2016-11-24] MEDS: ONDANSETRON (ODT) 4 MG TAB ODT PRN (13:47)
[2016-11-24 19:45] VITALS: BP 138/87; PULSE 103; RESP 20
[2016-11-24 19:59] VITALS: BP 138/87; RESP 20
== END 2016-11-24 21:03 | DRG 202 ==
LOC: INTOOBSV 17:19 → PP2 17:19 → OBSVTOIN 11-20 14:21
PROVIDERS: ADMIT Internal Medicine; ATTEND Internal Medicine
DX: J20.9 Acute bronchitis, unspecified (principal); F02.81 Dementia in other diseases classified elsewhere, unspecified severity, with behavioral disturbance; D69.6 Thrombocytopenia, unspecified; G31.09 Other frontotemporal neurocognitive disorder; R63.0 Anorexia; I80.9 Phlebitis and thrombophlebitis of unspecified site; G40.909 Epilepsy, unspecified, not intractable, without status epilepticus; R11.0 Nausea; Z68.37 Body mass index [BMI] 37.0-37.9, adult; S22.42XD Multiple fractures of ribs, left side, subsequent encounter for fracture with routine healing; W19.XXXD Unspecified fall, subsequent encounter; M79.7 Fibromyalgia; Z22.322 Carrier or suspected carrier of Methicillin resistant Staphylococcus aureus
CPT/HCPCS: 71010; 71250; 80048; 80053; 80185; 81001; 81003; 82728; 83540; 83735; 84100; 84145; 84443; 85025; 85610; 85730; 87070; 87081; 87086; 87275; 87276; 87279; 87280; 93005; 93970; 94640; 99217; G0378; J0456; J1650; J2185; J2405; J2916; J7042

== ENCOUNTER 2017-01-12 18:22 | Inpatient (IN) | payer MEDICARE, BC ==
[~2017-01-12] VITALS: Ht 157.5 cm; Wt 59.8 kg
[~2017-01-12 18:22] MED LIST: ASC500 PO; CALC600T5 PO; CETI5SOL PO; CHOL100062 PO; DONE10TA33 PO; DOXY100T2 PO; GUAI-111 PO; IBUP400T22 PO; LIDO700A6 TP; RABE20TA5 PO
--- NOTE | 2017-01-12 19:32 | HP ---
DATE OF ADMISSION: 01/12/2017 REASON FOR ADMISSION: Bilateral lower extremity edema and urinary frequency. HISTORY OF PRESENT ILLNESS: This 81-year-old female was in her usual state of health until last wee k when her daughter noticed that the patient had bilateral lower extremity edema, much more on the l eft leg than the right leg. The patient has some dementia and is unable to give much of an accurate history. The patient lives in a board and care situation. The patient's daughter took the patient to [facility] 2 days ago. At that time, the patient was seen in the emergency room and wood d a venous Doppler of the left leg, which was negative for DVT. The patient also had some laborator y tests that were done. She had a normal urinalysis, normal hemogram. Her chemistry panel showed a n elevated alkaline phosphatase of 173. The patient is constantly complaining of feeling like she n eeds to urinate. While in my office today, she went to urinate at least 4 times in an hour. She de nies any dysuria, but does have some pelvic pressure. This lower extremity edema is new for the pat ient. She denies any cough, shortness of breath, chest pain. She does have some nausea, which has been constant problem. The patient was in this hospital several months ago because of a cough and b ronchitis. Since that time, she has been in a board and care in [place]. CURRENT MEDICATIONS: Include the followin. No added salt diet. 2. Tylenol 650 q.4 hours p.r.n. pain. 3. Aciphex 20 mg a day. 4. Calcium carbonate 600 mg once a day as needed for heartburn. 5. Vitamin D 1000 units a day that has been discontinued. 6. Claritin 10 mg a day, has been discontinued. 7 . Compazine 10 mg by mouth every 8 hours p.r.n. nausea. 8. Dilantin 300 mg at night. 9. Aricept 10 mg at night. 10. Iron sulfate 1 tablet daily. 11. Ibuprofen 400 mg every 8 hours as needed for pain. 12. Milk of magnesia p.r.n. constipation, discontinued. 13. Mucinex extended release 12 hours as needed for allergy symptoms. 14. Multivitamins 1 daily. 15. Namzaric 23/05, which was discontinued. 16. Pro-Stat liquid once a day. 17. UTI-Stat liquid once a day. 18. Vitamin C 500 mg a day. 19. Xanax 0.25 mg every 8 hours as needed for anxiety. 20. Zofran 4 mg a day by mouth every 8 hours as needed for nausea and vomiting, discontinued. 21. Zyrtec 10 mg a day. 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 ALLERGIES: THE FOLLOWING MEDICATIONS THAT SHE IS ALLERGIC TO: 1. SULFA. 2. ERYTHROMYCIN. 3. CODEINE. SURGICAL HISTORY: Hysterectomy, abdominal; breast biopsy, colonoscopy, periodontal surgery, hernior rhaphy of the left femoral hernia. FAMILY HISTORY: Both parents are . Father of colon cancer. Mother of Alzheimer's. S he has a sibling who is of coronary artery disease. of sudden . SOCIAL HISTORY: She does not smoke. She does not drink alcohol. REVIEW OF SYSTEMS: GENERAL: The patient is somewhat confused, but denies any fever, chills, night sweats. CARDIORESPIRATORY: She denies cough, shortness of breath, chest pain. GASTROINTESTINAL: She complains of nausea and gastroesophageal reflux disease. HEMATOLOGIC AND LYMPHATICS: Negative. DERMATOLOGIC: Negative. UROLOGIC: Urinary frequency and urgency. PHYSICAL EXAMINATION GENERAL: At this time, well-developed female in no apparent distress. VITAL SIGNS: Temperature 99.3, blood pressure 111/59, heart rate of 88. HEENT: Head normocephalic. Eyes: Extraocular muscles intact. NOSE AND MOUTH: Normal. NECK: Supple. No neck vein distention. LUNGS: Clear to auscultation. HEART: Regular rhythm. No murmurs, gallops, or rubs. ABDOMEN: Soft, nontender. No masses or megaly. EXTREMITIES: Both lower extremities are swollen with dilated varicose veins. The left leg is much more swollen than the right. She does have some tenderness in both legs. The legs show normal skin . There is no erythema. Pedal pulses are 2+ bilaterally. There are no ulcers on the feet. NEUROLOGIC: Grossly intact. IMPRESSION: 1. Edema. The patient shows bilateral lower extremity edema, which is new from when the last time I saw her, which was 12/04/2016. She did have a venous Doppler at [facility] 2 days ago of the left leg, which was negative for DVT. I am suspicious that the patient may have some blockage of the left leg and/or both legs because this swelling is certainly new and dramatic. I will repeat venous Doppler studies. I will do either an abdominopelvic ultrasound or CAT scan of the abdomen a nd pelvis. 2. Dementia, on medication. 3. Fibromyalgia. 4. Gastroesophageal reflux disease. 5. Frequency and urgency of urination. Her last urinalysis done 2 days ago was normal. PLAN: 1. Admit to med/surg floor. 2. Venous Doppler of both lower extremities. 3. Check labs in the morning. 4. Strict bed rest with legs elevated. 5. Abdominal ultrasound and/or CAT scan of the abdomen and pelvis. Dictated By: RAQUEL ESPINOZA MD, ND/JAZZY Conf#: [id number] DID#: [id number]
[2017-01-12 20:00] VITALS: Ht 157.5 cm; Wt 59.8 kg
[2017-01-12] MEDS ORDERED: IBUPROFEN 400 MG TAB PO PRN (20:00)
[2017-01-12] MEDS ORDERED: DOCUSATE SODIUM 100 MG CAP PO PRN (20:00)
[2017-01-12] MEDS ORDERED: ACETAMINOPHEN 650 MG SUPP PR PRN (20:00)
[2017-01-12] MEDS ORDERED: PROCHLORPERAZINE 10 MG TAB PO PRN (20:00)
[2017-01-12] MEDS ORDERED: NACL 0.9% 3 ML SYG IV SCH (20:00)
[2017-01-12] MEDS: DONEPEZIL 10 MG TAB PO SCH (21:33)
[2017-01-12] MEDS: PHENYTOIN 100 MG CAP PO SCH (21:34)
[2017-01-12] MEDS: ENOXAPARIN 40 MG/0.4 ML SYG SC SCH (21:35)
[2017-01-12] MEDS: ALPRAZOLAM 0.25 MG TAB PO PRN (21:36)
[2017-01-12] MEDS: traMADol 50 MG TAB PO PRN (21:37)
[2017-01-12 22:23] VITALS: BP 115/56; RESP 18
[2017-01-12] MEDS: GUAIFENESIN LA 600 MG TABSR PO SCH (22:31)
[2017-01-13] MEDS: PANTOPRAZOLE (EC) 40 MG TAB PO SCH (06:30)
[2017-01-13 06:38] LABS: ADD SCAN DIFF NO
[2017-01-13 06:48] LABS: ABNORMAL IP MESSAGE 1; BASOPHILS % 0.3 % (0.0-2.0); EOSINOPHILS % 0.8 % (0.0-7.0); HEMOGLOBIN 12.5 g/dl (12.0-16.0); LYMPHOCYTES # 1.6 10^3/ul (0.8-2.9); LYMPHOCYTES % 42.6 % (15.0-51.0); MEAN CORPUSCULAR HEMOGLOBIN 29.8 pg (29.0-33.0); MEAN CORPUSCULAR HGB CONC 31.3 g/dl (32.0-37.0); MEAN CORPUSCULAR VOLUME 95.5 fl (82.0-101.0); MEAN PLATELET VOLUME 12.8 fl (7.4-10.4); MONOCYTE # 0.7 10^3/ul (0.3-0.9); MONOCYTES % 18.4 % (0.0-11.0); NEUTROPHIL # 1.4 10^3/ul (1.6-7.5); NEUTROPHILS % 36.1 % (39.0-77.0); PLATELET COUNT 49 10^3/UL (140-415); RED BLOOD COUNT 4.19 10^6/ul (4.20-5.40); RED CELL DISTRIBUTION WIDTH 16.1 % (11.5-14.5); WHITE BLOOD COUNT 3.9 10^3/ul (4.8-10.8)
[2017-01-13 07:09] LABS: INR 1.01; PROTIME 13.3 Sec (12.2-14.2)
[2017-01-13 07:31] LABS: POTASSIUM 4.2 mmol/L (3.5-5.1)
[2017-01-13 07:32] LABS: ALBUMIN 3.8 g/dl (3.3-4.9); ALBUMIN/GLOBULIN RATIO 2.11; BILIRUBIN,INDIRECT 0.1 mg/dl (0-1.1); BILIRUBIN,TOTAL 0.1 mg/dl (0.2-1.3); CALCIUM 9.1 mg/dl (8.4-10.2); CREATININE 0.82 mg/dl (0.44-1.00); TOTAL PROTEIN 5.6 g/dl (6.1-8.1)
[2017-01-13 08:32] LABS: ADD UMIC NO; UR BILIRUBIN (Dip) NEGATIVE (NEGATIVE); UR BLOOD (Dip) NEGATIVE (NEGATIVE); UR CLARITY CLEAR (CLEAR); UR COLOR LT. YELLOW (YELLOW); UR GLUCOSE (Dip) NEGATIVE (NEGATIVE); UR KETONES (Dip) NEGATIVE (NEGATIVE); UR LEUKOCYTE ESTERASE (Dip) NEGATIVE (NEGATIVE); UR NITRITE (Dip) NEGATIVE (NEGATIVE); UR TOTAL PROTEIN (Dip) NEGATIVE (NEGATIVE); UR UROBILINOGEN (Dip) 0.2 E.U./dL (0.1-1.0)
[2017-01-13 08:46] VITALS: BP 118/64; RESP 17
--- NOTE | 2017-01-13 08:52 | PN ---
Date/Time of Note Date/Time of Note DATE: 01/13/17 TIME: 08:46 Assessment/Plan VTE Prophylaxis VTE Prophylaxis Intervention: LMWH Assessment/Plan Chief Complaint/Hosp Course 1. bilateral lower extremity edema L >> R , for venous doppler of legs , Abdominal /pelvic ultrasound . 2. urinary frequency , Ann catheter in place . U/A is normal 3. GERD . 4. h/o seizure disorder , on dilantin . Problems: Subjective 24 Hr Interval Summary Free Text/Dictation she is just finishing breakfast and seems comfortable . Respiratory: cough Gastrointestinal: pain Genitourinary: other Lymphatic: lymphadema Exam/Review of Systems Vital Signs Vitals Vital Signs Date Time Temp Pulse Resp B/P Pulse Ox O2 Delivery O2 Flow Rate FiO2 01/12/17 22:23 98.1 76 18 115/56 92 Intake and Output 01/12/17 01/12/17 01/13/17 14:59 22:59 06:59 Intake Total 340 ml Output Total 250 ml Balance 90 ml Exam Constitutional: alert, oriented, well developed Psych: anxiety Respiratory: clear to auscultation, normal air movement Cardiovascular: edema, regular rate and rhythm Gastrointestinal: soft, tender Extremities: edema Results Result Diagram: 01/13/17 0536 01/13/17 0536 Results 24 hrs Laboratory Tests Test 01/13/17 05:00 01/13/17 05:36 Urine Color LT. YELLOW Urine Clarity CLEAR Urine pH 7.0 Urine Specific [place] 1.010 Urine Ketones NEGATIVE Urine Nitrite NEGATIVE Urine Bilirubin NEGATIVE Urine Urobilinogen 0.2 E.U./dL Urine Leukocyte Esterase NEGATIVE Urine Hemoglobin NEGATIVE Urine Glucose NEGATIVE Urine Total Protein NEGATIVE White Blood Count 3.9 L Red Blood Count 4.19 L Hemoglobin 12.5 Hematocrit 40.0 Mean Corpuscular Volume 95.5 Mean Corpuscular Hemoglobin 29.8 Mean Corpuscular Hemoglobin Concent 31.3 L Red Cell Distribution Width 16.1 H Platelet Count 49 #L Mean Platelet Volume 12.8 #H Neutrophils % 36.1 L Lymphocytes % 42.6 Monocytes % 18.4 H Eosinophils % 0.8 Basophils % 0.3 Nucleated Red Blood Cells % 0.0 Neutrophils # 1.4 L Lymphocytes # 1.6 Monocytes # 0.7 Eosinophils # 0.0 Basophils # 0.0 Nucleated Red Blood Cells # 0.0 Prothrombin Time 13.3 Prothrombin Time Ratio 1.0 INR International Normalized Ratio 1.01 Activated Partial Thromboplast Time 36.0 H Sodium Level 139 Potassium Level 4.2 Chloride Level 104 Carbon Dioxide Level 30 Anion Gap 9 Blood Urea Nitrogen 22 H Creatinine 0.82 Glucose Level 86 Calcium Level 9.1 Phosphorus Level 4.0 Magnesium Level 2.0 Total Bilirubin 0.1 L Direct Bilirubin 0.00 Indirect Bilirubin 0.1 Aspartate Amino Transf (AST/SGOT) 15 Alanine Aminotransferase (ALT/SGPT) 23 Alkaline Phosphatase 112 Total Protein 5.6 L Albumin 3.8 Globulin 1.80 Albumin/Globulin Ratio 2.11 Medications Medications Current Medications Acetaminophen (Tylenol Supp) 650 mg Q6H PRN [place] PAIN LEVEL 1-3 OR FEVER; Start 01/12/17 at 20:00 Docusate Sodium (Colace) 100 mg Q12H PRN PO CONSTIPATION; Start 01/12/17 at 20: 00 Pantoprazole (Protonix Tab) 40 mg DAILY@06 PO Last administered on 01/13/17 06 :30; Admin Dose 40 MG; Start 01/13/17 at 06:00 Enoxaparin Sodium (Lovenox) 40 mg DAILY SC Last administered on 01/12/17 21:35 ; Admin Dose 40 MG; Start 01/12/17 at 20:00 Ascorbic Acid (Vitamin C) 500 mg DAILY PO ; Start 01/13/17 at 09:00 Cholecalciferol (Vitamin D) 1,000 unit DAILY PO ; Start 01/13/17 at 09:00 Donepezil HCl (Aricept) 10 mg DAILY PO Last administered on 01/12/17 21:33; Admin Dose 10 MG; Start 01/12/17 at 20:00 Ibuprofen (Motrin) 400 mg Q6H PRN PO PAIN; Start 01/12/17 at 20:00 Phenytoin (Dilantin) 300 mg HS PO Last administered on 01/12/17 21:34; Admin Dose 300 MG; Start 01/12/17 at 21:00 Prochlorperazine (Compazine) 10 mg TID PRN PO NAUSEA; Start 01/12/17 at 20:00 Guaifenesin (Mucinex) 600 mg BID PO Last administered on 01/12/17 22:31; Admin Dose 600 MG; Start 01/12/17 at 21:00 Multivitamins/ Minerals (Theragran-M) 1 tab DAILY PO ; Start 01/13/17 at 09:00 Alprazolam (Xanax) 0.25 mg Q8H PRN PO ANXIETY Last administered on 01/12/17 21 :36; Admin Dose 0.25 MG; Start 01/12/17 at 20:00 Loratadine (Claritin) 10 mg DAILY PO ; Start 01/13/17 at 09:00 Tramadol HCl (Ultram) 50 mg Q6H PRN PO PAIN Last administered on 01/12/17 21: 37; Admin Dose 50 MG; Start 01/12/17 at 21:00 RAQUEL ESPINOZA MD Jan 13, 2017 08:52
[2017-01-13] MEDS ORDERED: NON-FORMULARY/PATIENT OWN MED (Cetirizine Hcl* 10 MG) PO SCH (09:00)
[2017-01-13] MEDS: CHOLECALCIFEROL 1,000 UNIT TAB PO SCH (09:46)
[2017-01-13] MEDS: ASCORBIC ACID 500 MG TAB PO SCH (09:46)
[2017-01-13] MEDS: GUAIFENESIN LA 600 MG TABSR PO SCH ×2 (09:46→20:53)
[2017-01-13] MEDS: MULTIVITAMINS/MINERALS TAB PO SCH (09:46)
[2017-01-13] MEDS: DONEPEZIL 10 MG TAB PO SCH (09:46)
[2017-01-13] MEDS: LORATADINE 10 MG TAB PO SCH (09:46)
[2017-01-13] MEDS: ENOXAPARIN 40 MG/0.4 ML SYG SC SCH (09:52)
--- NOTE | 2017-01-13 11:53 | RADRPT ---
PROCEDURE: Ultrasound of the bilateral lower extremity venous system. CLINICAL INDICATION: Bilateral leg pain and swelling, deep venous thrombosis TECHNIQUE: Rosas scale with and without compression, color doppler, spectral doppler of the venous system of the bilateral lower extremities was performed. Venous augmentation maneuvers were utilized . COMPARISON: No prior studies are available for comparison. FINDINGS: RIGHT: Common femoral vein: Patent. Femoral vein: Patent. Popliteal vein: Patent. Calf veins: Patent. No soft tissue abnormalities are identified. LEFT: Common femoral vein: Patent. Femoral vein: Patent. Popliteal vein: Patent. Calf veins: Patent. No soft tissue abnormalities are identified. IMPRESSION: No evidence of a deep vein thrombosis within the bilateral lower extremities. RPTAT: AADD .Mckay Batista MD, MD Date Time Electronically viewed and signed by .Mckay Batista MD, MD on 01/13/2017 11:53 .B/
--- NOTE | 2017-01-13 14:37 | RADRPT ---
PROCEDURE: US Pelvis. CLINICAL INDICATION: The pain, urinary frequency. TECHNIQUE: Multiple sonographic images of the pelvis were obtained utilizing a transabdominal leta hnique. The images were reviewed on a PACS workstation. COMPARISON: None. FINDINGS: The uterus and ovaries are not well visualized. No adnexal masses or pelvic free fluid are noted. The bladder contains a moderate amount of urine and a Ann catheter. The bladder has an unremarkabl e appearance. IMPRESSION: Uterus and ovaries not well visualized. If characterization of these structures is needed repeat exa m or MRI is recommended. Moderately distended bladder, containing a Ann catheter. If further characterization of the organs of the pelvis is needed MRI should be considered. RPTAT: AA .Jai Light MD, Date Time Electronically viewed and signed by .Jai Light MD, MD on 01/13/2017 14:36 .P/
--- NOTE | 2017-01-13 16:54 | RADRPT ---
PROCEDURE: XR Chest. CLINICAL INDICATION: cough TECHNIQUE: Single frontal chest x-ray. COMPARISON: 11/18/2016. FINDINGS: The lungs are clear of acute infiltrates, edema, effusions, or masses.. The cardiomediastinal silho uette is unremarkable. The osseous structures are intact. IMPRESSION: No acute cardiopulmonary disease. RPTAT: GG .Roland Josue MD, MD Date Time Electronically viewed and signed by .Roland Josue MD, MD on 01/13/2017 16:54 .L/
[2017-01-13] MEDS: PROCHLORPERAZINE 10 MG TAB PO SCH ×2 (17:16→21:51)
[2017-01-13] MEDS ORDERED: BARIUM SULF 2% 450 ML BTL (BERRY SMOOTHIE) PO ONE (17:30)
[2017-01-13] MEDS: PHENYTOIN 100 MG CAP PO SCH (20:53)
[2017-01-13] MEDS: ALPRAZOLAM 0.25 MG TAB PO PRN (21:52)
[2017-01-13] MEDS: traMADol 50 MG TAB PO PRN (21:52)
[2017-01-13 22:17] VITALS: BP 121/65; RESP 19
[2017-01-14] MEDS: PROCHLORPERAZINE 10 MG TAB PO SCH ×3 (05:55→21:45)
[2017-01-14] MEDS: PANTOPRAZOLE (EC) 40 MG TAB PO SCH (05:59)
[2017-01-14 08:00] VITALS: BP 118/67; RESP 18
--- NOTE | 2017-01-14 08:24 | PN ---
Date/Time of Note Date/Time of Note DATE: 01/14/17 TIME: 08:18 Assessment/Plan VTE Prophylaxis VTE Prophylaxis Intervention: LMWH Lines/Catheters IV Catheter Type (from [facility] Saline Lock Urinary Cath still in place: Yes Reason Cath still needed: urinary retention Assessment/Plan Chief Complaint/Hosp Course 1. bilateral lower extremity edema L >> R , the venous dopplers of the legs were negative for DVT . She is scheduled for a CT scan of abdomen and pelvis . 2. urinary frequency , Ann catheter in place . U/A is normal 3. GERD . 4. h/o seizure disorder , on dilantin . Problems: Subjective 24 Hr Interval Summary Free Text/Dictation she is up walking . The venous dopplers of the lower extremities were negative for DVT . Cardiovascular: no complaints Gastrointestinal: no complaints Genitourinary: no complaints Neurologic: no complaints Exam/Review of Systems Vital Signs Vitals Vital Signs Date Time Temp Pulse Resp B/P Pulse Ox O2 Delivery O2 Flow Rate FiO2 01/13/17 22:17 98.3 75 19 121/65 93 Intake and Output 01/13/17 01/13/17 01/14/17 15:00 23:00 07:00 Intake Total 980 ml 350 ml Output Total 1550 ml 1200 ml Balance -570 ml -850 ml Exam Constitutional: alert, frail, oriented Respiratory: clear to auscultation, normal air movement Cardiovascular: edema, regular rate and rhythm Gastrointestinal: soft Extremities: edema Results Result Diagram: 01/13/1736 01/13/1736 Medications Medications Current Medications Acetaminophen (Tylenol Supp) 650 mg Q6H PRN [place] PAIN LEVEL 1-3 OR FEVER; Start 01/12/17 at 20:00 Docusate Sodium (Colace) 100 mg Q12H PRN PO CONSTIPATION; Start 01/12/17 at 20: 00 Pantoprazole (Protonix Tab) 40 mg DAILY@06 PO Last administered on 01/13/17 06 :30; Admin Dose 40 MG; Start 01/13/17 at 06:00 Enoxaparin Sodium (Lovenox) 40 mg DAILY SC Last administered on 01/13/17 09:52 ; Admin Dose 40 MG; Start 01/12/17 at 20:00 Ascorbic Acid (Vitamin C) 500 mg DAILY PO Last administered on 01/13/17 09:46 ; Admin Dose 500 MG; Start 01/13/17 at 09:00 Cholecalciferol (Vitamin D) 1,000 unit DAILY PO Last administered on 01/13/17 09:46; Admin Dose 1,000 UNIT; Start 01/13/17 at 09:00 Donepezil HCl (Aricept) 10 mg DAILY PO Last administered on 01/13/17 09:46; Admin Dose 10 MG; Start 01/12/17 at 20:00 Ibuprofen (Motrin) 400 mg Q6H PRN PO PAIN; Start 01/12/17 at 20:00 Phenytoin (Dilantin) 300 mg HS PO Last administered on 01/13/17 20:53; Admin Dose 300 MG; Start 01/12/17 at 21:00 Guaifenesin (Mucinex) 600 mg BID PO Last administered on 01/13/17 20:53; Admin Dose 600 MG; Start 01/12/17 at 21:00 Multivitamins/ Minerals (Theragran-M) 1 tab DAILY PO Last administered on 09:46; Admin Dose 1 TAB; Start 01/13/17 at 09:00 Alprazolam (Xanax) 0.25 mg Q8H PRN PO ANXIETY Last administered on 01/13/17 21 :52; Admin Dose 0.25 MG; Start 01/12/17 at 20:00 Loratadine (Claritin) 10 mg DAILY PO Last administered on 01/13/17 09:46; Admin Dose 10 MG; Start 01/13/17 at 09:00 Tramadol HCl (Ultram) 50 mg Q6H PRN PO PAIN Last administered on 01/13/17 21: 52; Admin Dose 50 MG; Start 01/12/17 at 21:00 Prochlorperazine (Compazine) 10 mg Q8 PO Last administered on 01/14/17 05:55; Admin Dose 10 MG; Start 01/13/17 at 17:00 RAQUEL ESPINOZA MD Jan 14, 2017 08:24
[2017-01-14] MEDS: LORATADINE 10 MG TAB PO SCH (09:00)
[2017-01-14] MEDS: DONEPEZIL 10 MG TAB PO SCH (09:00)
[2017-01-14] MEDS: GUAIFENESIN LA 600 MG TABSR PO SCH ×2 (09:00→21:43)
[2017-01-14] MEDS: MULTIVITAMINS/MINERALS TAB PO SCH (09:01)
[2017-01-14] MEDS: CHOLECALCIFEROL 1,000 UNIT TAB PO SCH (09:01)
[2017-01-14] MEDS: ASCORBIC ACID 500 MG TAB PO SCH (09:01)
[2017-01-14] MEDS: ENOXAPARIN 40 MG/0.4 ML SYG SC SCH (09:04)
[2017-01-14] MEDS ORDERED: IOHEXOL 300MG/ML 150 ML BTL ONE (09:22)
[2017-01-14] MEDS ORDERED: SOD CHLORIDE 0.9% 100 ML ONE (09:22)
--- NOTE | 2017-01-14 12:12 | RADRPT ---
PROCEDURE: CT Abdomen and Pelvis with contrast. CLINICAL INDICATION: Abdominal pain , bilateral lower extremity swelling TECHNIQUE: CT scan of the abdomen and pelvis with contrast was performed on a multidetector high-r esolution CT scanner. Coronal and sagittal reformatted images were obtained from the axial source im ages. Images were reviewed on a high-resolution PACS workstation. 80 cc of Isovue 300 iodinated cont rast was administered intravenously without reported complication. The total exam CTDI equals 16 mG y and the total exam DLP equals 835 mGy-cm. One or more of the following dose reduction techniques were used: Automated exposure control, Adjustment of the mA and/or kV according to patient size, and /or use of iterative reconstruction technique. COMPARISON: None. FINDINGS: The lung bases are clear. Left hepatic 3 mm hypodense structure is too small to characterize but probably a small cyst. Two ri ght hepatic cysts are noted. The portal vein is patent. Small cystic lesions measuring up to 8 x 7 mm at the pancreatic head/uncinate process. Multiple soft tissue density splenic lesions are identi fied with the largest measuring 1.6 x 1.2 cm. No focal pericholecystic inflammatory changes. No hydronephrosis. No obstructing renal stone. Left renal cyst. No bowel obstruction. Colonic diverticulosis. The appendix is not visualized but there is no focal i nflammatory stranding in the right lower quadrant. No evidence of high-grade mass compression of the inferior vena cava, bilateral common iliac, or bilateral external iliac veins identified. No significant retroperitoneal lymphadenopathy, ascites or evidence of pneumoperitoneum. Ann princess ter in place. Aortoiliac atherosclerosis. Absent uterus. Degenerative changes of the spine. IMPRESSION: No evidence of bowel obstruction or appendicitis. Colonic diverticulosis. No evidence of high-grade mass compression of the inferior vena cava, bilateral common iliac, or cassius ateral external iliac veins identified. Multiple soft tissue density splenic lesions are indeterminate with both benign and malignant etiolo gies possible. Recommend correlation with patient history and consider attention on followup. Small cystic lesions measuring up to 8 x 7 mm at the pancreatic head/uncinate process. These may rep resent small pancreatic pseudocysts if the patient has a prior history of pancreatitis. Alternative ly, a small pancreatic cystic neoplasm may have a similar appearance. Consider imaging follow-up as warranted. RPTAT: AA .Ammon Day MD, MD Date Time Electronically viewed and signed by .Ammon Day MD, MD on 01/14/2017 12:11 .T/
[2017-01-14] MEDS: ONDANSETRON 4 MG INJ IV PRN (16:39)
[2017-01-14 21:10] VITALS: BP 116/67; RESP 18
[2017-01-14] MEDS: PHENYTOIN 100 MG CAP PO SCH (21:44)
[2017-01-14] MEDS ORDERED: RABEPRAZOLE SODIUM 20 MG XX SCH (22:30)
[2017-01-15 05:13] LABS: ADD SCAN DIFF NO
[2017-01-15 05:18] LABS: ABNORMAL IP MESSAGE 1; BASOPHILS % 0.2 % (0.0-2.0); EOSINOPHILS % 0.2 % (0.0-7.0); HEMATOCRIT 40.7 % (37.0-47.0); LYMPHOCYTES # 2.5 10^3/ul (0.8-2.9); LYMPHOCYTES % 49.7 % (15.0-51.0); MEAN CORPUSCULAR HEMOGLOBIN 29.8 pg (29.0-33.0); MEAN CORPUSCULAR HGB CONC 31.9 g/dl (32.0-37.0); MEAN CORPUSCULAR VOLUME 93.3 fl (82.0-101.0); MEAN PLATELET VOLUME 10.3 fl (7.4-10.4); MONOCYTE # 0.7 10^3/ul (0.3-0.9); MONOCYTES % 14.8 % (0.0-11.0); NEUTROPHIL # 1.7 10^3/ul (1.6-7.5); NEUTROPHILS % 33.9 % (39.0-77.0); PLATELET COUNT 52 10^3/UL (140-415); RED BLOOD COUNT 4.36 10^6/ul (4.20-5.40); RED CELL DISTRIBUTION WIDTH 16.1 % (11.5-14.5)
[2017-01-15 05:49] LABS: ALBUMIN 3.5 g/dl (3.3-4.9); ALBUMIN/GLOBULIN RATIO 1.75; BILIRUBIN,INDIRECT 0.1 mg/dl (0-1.1); BILIRUBIN,TOTAL 0.1 mg/dl (0.2-1.3); CALCIUM 9.4 mg/dl (8.4-10.2); CREATININE 0.73 mg/dl (0.44-1.00); POTASSIUM 4.3 mmol/L (3.5-5.1); TOTAL PROTEIN 5.5 g/dl (6.1-8.1)
[2017-01-15] MEDS: RABEPRAZOLE SODIUM 20 MG PO SCH (06:03)
[2017-01-15] MEDS: PROCHLORPERAZINE 10 MG TAB PO SCH ×3 (06:03→21:29)
[2017-01-15] MEDS: ONDANSETRON 4 MG INJ IV PRN (06:05)
[2017-01-15] MEDS: LORATADINE 10 MG TAB PO SCH (08:22)
[2017-01-15] MEDS: GUAIFENESIN LA 600 MG TABSR PO SCH ×2 (08:23→21:26)
[2017-01-15] MEDS: DONEPEZIL 10 MG TAB PO SCH (08:23)
[2017-01-15] MEDS: ASCORBIC ACID 500 MG TAB PO SCH (08:23)
[2017-01-15] MEDS: CHOLECALCIFEROL 1,000 UNIT TAB PO SCH (08:23)
[2017-01-15] MEDS: MULTIVITAMINS/MINERALS TAB PO SCH (08:23)
[2017-01-15] MEDS: ENOXAPARIN 40 MG/0.4 ML SYG SC SCH (08:23)
--- NOTE | 2017-01-15 10:13 | PN ---
Date/Time of Note Date/Time of Note DATE: 01/15/17 TIME: 10:06 Assessment/Plan VTE Prophylaxis VTE Prophylaxis Intervention: LMWH Lines/Catheters [facility] Saline Lock Urinary Cath still in place: No Assessment/Plan Chief Complaint/Hosp Course 1. bilateral lower extremity edema L >> R , the venous dopplers of the legs were negative for DVT . CT of abdomen and pelvis did not shoe any vascular blockages or masses . She has dependent edema . 2. urinary frequency , Ann catheter in place . U/A is normal , no infection . I will D/C Ann catheter and start Vesicare 5 mg a day . I discussed this with the patient . 3. GERD . 4. h/o seizure disorder , on Dilantin . 5. cognitive impairment Problems: Subjective 24 Hr Interval Summary Free Text/Dictation She denies pain . She is awake and alert . Constitutional: no complaints Cardiovascular: no complaints Gastrointestinal: no complaints Genitourinary: other Musculoskeletal: no complaints Neurologic: no complaints Exam/Review of Systems Vital Signs Vitals Vital Signs Date Time Temp Pulse Resp B/P Pulse Ox O2 Delivery O2 Flow Rate FiO2 01/14/17 21:10 98.4 75 18 116/67 92 Intake and Output 01/14/17 01/14/17 01/15/17 15:00 23:00 07:00 Intake Total 840 ml 400 ml Output Total 525 ml 800 ml Balance 315 ml -400 ml Exam Constitutional: alert, frail, oriented Respiratory: clear to auscultation, normal air movement Cardiovascular: edema, nl pulses, regular rate and rhythm Gastrointestinal: nl liver, spleen, non-tender, soft Results Result Diagram: 01/15/17 0450 01/15/17 0420 Results 24 hrs Laboratory Tests Test 01/15/17 04:20 01/15/17 04:50 Sodium Level 141 Potassium Level 4.3 Chloride Level 107 Carbon Dioxide Level 28 Anion Gap 10 Blood Urea Nitrogen 15 Creatinine 0.73 Glucose Level 89 Calcium Level 9.4 Total Bilirubin 0.1 L Direct Bilirubin 0.00 Indirect Bilirubin 0.1 Aspartate Amino Transf (AST/SGOT) 15 Alanine Aminotransferase (ALT/SGPT) 24 Alkaline Phosphatase 108 Total Protein 5.5 L Albumin 3.5 Globulin 2.00 Albumin/Globulin Ratio 1.75 Thyroid Stimulating Hormone (TSH) 4.380 White Blood Count 5.0 # Red Blood Count 4.36 Hemoglobin 13.0 Hematocrit 40.7 Mean Corpuscular Volume 93.3 Mean Corpuscular Hemoglobin 29.8 Mean Corpuscular Hemoglobin Concent 31.9 L Red Cell Distribution Width 16.1 H Platelet Count 52 L Mean Platelet Volume 10.3 Neutrophils % 33.9 L Lymphocytes % 49.7 Monocytes % 14.8 H Eosinophils % 0.2 Basophils % 0.2 Nucleated Red Blood Cells % 0.0 Neutrophils # 1.7 Lymphocytes # 2.5 Monocytes # 0.7 Eosinophils # 0.0 Basophils # 0.0 Nucleated Red Blood Cells # 0.0 Medications Medications Current Medications Acetaminophen (Tylenol Supp) 650 mg Q6H PRN [place] PAIN LEVEL 1-3 OR FEVER; Start 01/12/17 at 20:00 Docusate Sodium (Colace) 100 mg Q12H PRN PO CONSTIPATION; Start 01/12/17 at 20: 00 Enoxaparin Sodium (Lovenox) 40 mg DAILY SC Last administered on 01/15/17 08:23 ; Admin Dose 40 MG; Start 01/12/17 at 20:00 Ascorbic Acid (Vitamin C) 500 mg DAILY PO Last administered on 01/15/17 08:23 ; Admin Dose 500 MG; Start 01/13/17 at 09:00 Cholecalciferol (Vitamin D) 1,000 unit DAILY PO Last administered on 01/15/17 08:23; Admin Dose 1,000 UNIT; Start 01/13/17 at 09:00 Donepezil HCl (Aricept) 10 mg DAILY PO Last administered on 01/15/17 08:23; Admin Dose 10 MG; Start 01/12/17 at 20:00 Ibuprofen (Motrin) 400 mg Q6H PRN PO PAIN; Start 01/12/17 at 20:00 Phenytoin (Dilantin) 300 mg HS PO Last administered on 01/14/17 21:44; Admin Dose 300 MG; Start 01/12/17 at 21:00 Guaifenesin (Mucinex) 600 mg BID PO Last administered on 01/15/17 08:23; Admin Dose 600 MG; Start 01/12/17 at 21:00 Multivitamins/ Minerals (Theragran-M) 1 tab DAILY PO Last administered on 08:23; Admin Dose 1 TAB; Start 01/13/17 at 09:00 Alprazolam (Xanax) 0.25 mg Q8H PRN PO ANXIETY Last administered on 01/13/17 21 :52; Admin Dose 0.25 MG; Start 01/12/17 at 20:00 Loratadine (Claritin) 10 mg DAILY PO Last administered on 01/15/17 08:22; Admin Dose 10 MG; Start 01/13/17 at 09:00 Tramadol HCl (Ultram) 50 mg Q6H PRN PO PAIN Last administered on 01/13/17 21: 52; Admin Dose 50 MG; Start 01/12/17 at 21:00 Prochlorperazine (Compazine) 10 mg Q8 PO Last administered on 01/15/17 06:03; Admin Dose 10 MG; Start 01/13/17 at 17:00 Ondansetron HCl (Zofran Inj) 4 mg Q6H PRN IV NAUSEA AND/OR VOMITING Last administered on 01/15/17 06:05; Admin Dose 4 MG; Start 01/14/17 at 16:30 Patient Own Medication 1 ea DAILY@06 PO Last administered on 01/15/17 06:03; Admin Dose 1 EA; Start 01/15/17 at 06:00 Solifenacin (Vesicare) 5 mg DAILY PO ; Start 01/15/17 at 11:00 RAQUEL ESPINOZA MD Jan 15, 2017 10:13
[2017-01-15] MEDS: SOLIFENACIN 5 MG TAB PO SCH (11:46)
[2017-01-15 20:50] VITALS: BP 110/57; RESP 18
[2017-01-15] MEDS: PHENYTOIN 100 MG CAP PO SCH (21:26)
[2017-01-16] MEDS: RABEPRAZOLE SODIUM 20 MG PO SCH (05:42)
[2017-01-16] MEDS: PROCHLORPERAZINE 10 MG TAB PO SCH ×3 (05:46→21:23)
[2017-01-16] MEDS: traMADol 50 MG TAB PO PRN (06:16)
[2017-01-16 08:00] VITALS: BP 130/71; RESP 20
[2017-01-16] MEDS: CHOLECALCIFEROL 1,000 UNIT TAB PO SCH (09:18)
[2017-01-16] MEDS: MULTIVITAMINS/MINERALS TAB PO SCH (09:18)
[2017-01-16] MEDS: LORATADINE 10 MG TAB PO SCH (09:18)
[2017-01-16] MEDS: ASCORBIC ACID 500 MG TAB PO SCH (09:18)
[2017-01-16] MEDS: DONEPEZIL 10 MG TAB PO SCH (09:18)
[2017-01-16] MEDS: GUAIFENESIN LA 600 MG TABSR PO SCH ×2 (09:18→21:20)
[2017-01-16] MEDS: SOLIFENACIN 5 MG TAB PO SCH (09:20)
[2017-01-16] MEDS: ENOXAPARIN 40 MG/0.4 ML SYG SC SCH (09:22)
--- NOTE | 2017-01-16 09:47 | PN ---
Date/Time of Note Date/Time of Note DATE: 01/16/17 TIME: 09:41 Assessment/Plan VTE Prophylaxis VTE Prophylaxis Intervention: LMWH Lines/Catheters [facility] Saline Lock Urinary Cath still in place: No Assessment/Plan Chief Complaint/Hosp Course 1. bilateral lower extremity edema L >> R , the venous dopplers of the legs were negative for DVT . CT of abdomen and pelvis did not show any vascular blockages or masses . She has dependent edema . 2. urinary frequency , Ann catheter in place . U/A is normal , no infection . I will D/C Ann catheter and start Vesicare 5 mg a day . I discussed this with the patient and her daughter.. 3. GERD . 4. h/o seizure disorder , on Dilantin . 5. cognitive impairment with some other psychological issues. Discharge planning is trying to work with the patient's daughter to find this sniff that she can be transferred to. If the sniff is in the area I will try to follow the patient Problems: Subjective 24 Hr Interval Summary Free Text/Dictation The Ann catheter was removed yesterday. She now has frequency of urination. Her urine analysis and urine culture were normal and no growth. She constantly has a feeling that she needs to urinate. I think that there is some psychogenic component to this problem. I did start her on Vesicare and we will see how that works. Constitutional: improved, no complaints Cardiovascular: no complaints Gastrointestinal: no complaints Genitourinary: other Musculoskeletal: no complaints Neurologic: no complaints Exam/Review of Systems Vital Signs Vitals Vital Signs Date Time Temp Pulse Resp B/P Pulse Ox O2 Delivery O2 Flow Rate FiO2 01/15/17 20:50 98.1 90 18 110/57 94 Intake and Output 01/15/17 01/15/17 01/16/17 15:00 23:00 07:00 Intake Total 840 ml 400 ml Output Total 1700 ml 550 ml Balance -860 ml -150 ml Exam Constitutional: alert, frail, oriented Psych: anxiety, confusion, no complaints Head: normocephalic Respiratory: clear to auscultation, normal air movement Cardiovascular: nl pulses, regular rate and rhythm Gastrointestinal: nl liver, spleen, non-tender, soft Musculoskeletal: nl extremities to inspection Extremities: edema Results Result Diagram: 01/15/1744901/15/17419 Medications Medications Current Medications Acetaminophen (Tylenol Supp) 650 mg Q6H PRN [place] PAIN LEVEL 1-3 OR FEVER; Start 01/12/17 at 20:00 Docusate Sodium (Colace) 100 mg Q12H PRN PO CONSTIPATION; Start 01/12/17 at 20: 00 Enoxaparin Sodium (Lovenox) 40 mg DAILY SC Last administered on 01/16/17 09:22 ; Admin Dose 40 MG; Start 01/12/17 at 20:00 Ascorbic Acid (Vitamin C) 500 mg DAILY PO Last administered on 01/16/17 09:18 ; Admin Dose 500 MG; Start 01/13/17 at 09:00 Cholecalciferol (Vitamin D) 1,000 unit DAILY PO Last administered on 01/16/17 09:18; Admin Dose 1,000 UNIT; Start 01/13/17 at 09:00 Donepezil HCl (Aricept) 10 mg DAILY PO Last administered on 01/16/17 09:18; Admin Dose 10 MG; Start 01/12/17 at 20:00 Ibuprofen (Motrin) 400 mg Q6H PRN PO PAIN; Start 01/12/17 at 20:00 Phenytoin (Dilantin) 300 mg HS PO Last administered on 01/15/17 21:26; Admin Dose 300 MG; Start 01/12/17 at 21:00 Guaifenesin (Mucinex) 600 mg BID PO Last administered on 01/16/17 09:18; Admin Dose 600 MG; Start 01/12/17 at 21:00 Multivitamins/ Minerals (Theragran-M) 1 tab DAILY PO Last administered on 09:18; Admin Dose 1 TAB; Start 01/13/17 at 09:00 Alprazolam (Xanax) 0.25 mg Q8H PRN PO ANXIETY Last administered on 01/13/17 21 :52; Admin Dose 0.25 MG; Start 01/12/17 at 20:00 Loratadine (Claritin) 10 mg DAILY PO Last administered on 01/16/17 09:18; Admin Dose 10 MG; Start 01/13/17 at 09:00 Tramadol HCl (Ultram) 50 mg Q6H PRN PO PAIN Last administered on 6/23/17at 06: 16; Admin Dose 50 MG; Start 01/12/17 at 21:00 Prochlorperazine (Compazine) 10 mg Q8 PO Last administered on 01/16/17 05:46; Admin Dose 10 MG; Start 01/13/17 at 17:00 Ondansetron HCl (Zofran Inj) 4 mg Q6H PRN IV NAUSEA AND/OR VOMITING Last administered on 01/15/17 06:05; Admin Dose 4 MG; Start 01/14/17 at 16:30 Patient Own Medication 1 ea DAILY@06 PO Last administered on 01/16/17 05:42; Admin Dose 1 EA; Start 01/15/17 at 06:00 Solifenacin (Vesicare) 5 mg DAILY PO Last administered on 01/16/17 09:20; Admin Dose 5 MG; Start 01/15/17 at 11:00 RAQUEL ESPINOZA MD Jan 16, 2017 09:46
[2017-01-16 20:00] VITALS: BP 113/63; RESP 18
[2017-01-16] MEDS: PHENYTOIN 100 MG CAP PO SCH (21:20)
[2017-01-16] MEDS: ALPRAZOLAM 0.25 MG TAB PO PRN (21:23)
[2017-01-17] MEDS: PROCHLORPERAZINE 10 MG TAB PO SCH ×2 (05:58→13:48)
[2017-01-17] MEDS: RABEPRAZOLE SODIUM 20 MG PO SCH (05:58)
[2017-01-17 08:00] VITALS: BP 126/59; PULSE 63; RESP 18
[2017-01-17] MEDS: SOLIFENACIN 5 MG TAB PO SCH (10:18)
[2017-01-17] MEDS: ONDANSETRON 4 MG INJ IV PRN (10:18)
[2017-01-17] MEDS: DONEPEZIL 10 MG TAB PO SCH (10:18)
[2017-01-17] MEDS: GUAIFENESIN LA 600 MG TABSR PO SCH (10:18)
[2017-01-17] MEDS: LORATADINE 10 MG TAB PO SCH (10:18)
[2017-01-17] MEDS: ASCORBIC ACID 500 MG TAB PO SCH (10:18)
[2017-01-17] MEDS: MULTIVITAMINS/MINERALS TAB PO SCH (10:18)
[2017-01-17] MEDS: CHOLECALCIFEROL 1,000 UNIT TAB PO SCH (10:18)
[2017-01-17] MEDS: ENOXAPARIN 40 MG/0.4 ML SYG SC SCH (10:19)
--- NOTE | 2017-01-17 12:10 | PDOCDIS ---
Discharge Instructions CONDITION Patient Condition: Good HOME CARE INSTRUCTIONS: Diet Instructions: Reduced SodiumSpecial Diet: REGULAR DIET ACTIVITY: Activity Restrictions: Slowly Increase Activity Rest between Activity Avoid heavy lifting Do not Drive Keep Limb Elevated Weight Bearing Bathing Restrictions: Shower FOLLOW UP/APPOINTMENTS Follow-up Plan Dr Pascual in 2 weeks RAQUEL ESPINOZA MD Jan 17, 2017 12:10
--- NOTE | 2017-01-17 13:16 | DS ---
DATE OF ADMISSION: 01/14/2017 DATE OF DISCHARGE: HISTORY OF PRESENT ILLNESS AND HOSPITAL COURSE: This 81-year-old female was admitted from my office after she presented with bilateral lower extremity edema. The left leg was much more swollen than the right. This extensive lower extremity swelling was new from when I last saw her. The patient h ad been seen at [facility] 2 days before this admission. She had a venous Doppler of the l eft leg which was negative for DVT. I was concerned about DVT and also about some blockage in the p eliazar or abdomen that was causing this degree of swelling. The patient was brought in to the hospit al and she was put at bed rest. The patient did have bilateral lower extremity venous Dopplers ic h were negative for DVT. She also had an abdominal pelvic CAT scan which did not show any evidence of any mass or tumor causing vascular obstruction. The patient will be transferred back to her [facility] facility. Her daughter will take her back there today. I did have several discussions with the daughter about the patient and her current living situation. It was decided that she could go back there. The patient while in the hospital was kept at bed rest. Her leg swelling decreased significantly. The patient will be sent back to her board and care facility. She will continue th e following medications: 1. Acetaminophen 650 mg p.o. every 6 hours as needed for pain or fever. 2. Alprazolam 0.25 mg 3 times a day as needed for anxiety. 3. Ascorbic acid 500 mg a day. 4. Vitamin D 1000 units daily. 5. Docusate sodium 100 mg twice a day. 6. Aricept 10 mg a day. 7. Guanfacine 600 mg tablet twice a day. 8. Ibuprofen 400 mg q.6h. p.r.n. pain. 9. Claritin 10 mg a day. 10. Multivitamins with minerals once a day. 11. Zofran 4-mg tablet p.o. q.6h. p.r.n. nausea. 12. Aciphex 20 mg a day. 13. Dilantin 300 mg at bedtime daily. 14. Compazine 10 mg every 8 hours. 15. VESIcare 5 mg once a day. 16. Tramadol 50 mg q.6h. p.r.n. moderate pain. The patient had urinary frequency. Her urinalysis was normal. There was no evidence of infection. The patient will be transferred back to her current living situation by her daughter. I told the p atrome to come and see me in my office in 2 weeks. DISCHARGE DIAGNOSES: 1. Lower extremity edema due to dependent edema and venous insufficiency of both lower extremities. 2. Urinary frequency due to spastic bladder, now improved on VESIcare. 3. Nausea. Treated with oral antiemetic agents. 4. Dementia. 5. Anxiety/depression. Dictated By: RAQUEL ESPINOZA MD, ND/JAZZY Conf#: [id number] DID#: [id number]
[2017-01-17] MEDS: ALPRAZOLAM 0.25 MG TAB PO PRN (17:21)
== END 2017-01-17 17:47 | disposition home or self-care (01) | DRG 301 ==
LOC: INTOOBSV 18:22 → PP2 18:22 → OBSVTOIN 01-14 09:50
PROVIDERS: ADMIT Internal Medicine; ATTEND Internal Medicine
DX: I83.893 Varicose veins of bilateral lower extremities with other complications (principal); F03.90 Unspecified dementia, unspecified severity, without behavioral disturbance, psychotic disturbance, mood disturbance, and anxiety; G40.909 Epilepsy, unspecified, not intractable, without status epilepticus; N32.89 Other specified disorders of bladder; R60.0 Localized edema; R35.0 Frequency of micturition; R11.0 Nausea; F41.8 Other specified anxiety disorders; K21.9 Gastro-esophageal reflux disease without esophagitis; M79.7 Fibromyalgia; G31.84 Mild cognitive impairment of uncertain or unknown etiology
CPT/HCPCS: 71010; 74177; 76856; 80053; 81003; 83735; 84100; 84443; 85025; 85610; 85730; 87086; 93970; 97162; 99217; G0378; J1650; J2405; Q9967